=== PATIENT | male | born 1950 | race Caucasian/White ===

== ENCOUNTER 2024-03-30 01:55 | Inpatient (IN) | payer OTHER ==
[2024-03-30] VITALS (9 sets, daily range): BP systolic 130–160; BP diastolic 78–99; PULSE 61–91; RESP 17–22; TEMP 97.5–98.3; O2SAT 95–97
[~2024-03-30] VITALS: Ht 195.6 cm; Wt 118.4 kg
[2024-03-30] MEDS ORDERED: CALC0.25 PO (02:44)
[2024-03-30] MEDS ORDERED: METO-159 PO (02:44)
[2024-03-30] MEDS ORDERED: TAMS0.4C39 PO (02:44)
[2024-03-30] MEDS ORDERED: HYDR-4902 PO (02:44)
[2024-03-30] MEDS ORDERED: ALLO100T PO (02:44)
[2024-03-30] MEDS ORDERED: GABA-1250 PO (02:44)
[2024-03-30] MEDS ORDERED: ACETAMINOPHEN 325 MG TAB PO PRN (02:45)
[2024-03-30] MEDS ORDERED: ONDANSETRON HCL 4 MG/2 ML VIAL IV PRN (02:45)
[2024-03-30] MEDS ORDERED: VANCOMYCIN PER PHARMACY 0 MG IV SCH (02:45)
[2024-03-30] MEDS: VANCOMYCIN 1GM/250ML 200 ML IV ONE (04:20)
[2024-03-30] MEDS: methylPREDNISolone SOD SUCC 40 MG/ML VL IV SCH (06:05)
[2024-03-30 06:12] LABS: Basophils # (auto) 0 10 ^3/uL (0-0.2); Basophils % (auto) 0.1 % (0.0-2.0); Eosinophils # (auto) 0 10 ^3/uL (0-0.8); Eosinophils % (auto) 0.2 % (0.0-7.0); Hematocrit 40.6 % (41.0-53.0); Hemoglobin 14.4 g/dL (13.5-17.5); Lymphocytes # (auto) 0.3 10 ^3/uL (0.4-5.4); Lymphocytes % (auto) 6.2 % (10.0-50.0); Mean Corpuscular Hemoglobin 33.6 pg (28.0-32.0); Mean Corpuscular Hgb Conc. 35.4 g/dL (32.0-36.0); Monocytes # (auto) 0.1 10 ^3/uL (0-1.3); Neutrophils # (auto) 4.7 10 ^3/uL (1.6-8.6); Neutrophils % (auto) 91.5 % (37.0-80.0); Platelet Count (auto) 265 10^3/uL (140-450); Red Blood Cells 4.28 10^6/uL (4.5-5.90); Red Cell Distribution Width 14.4 % (11.8-14.3); White Blood Cell 5.2 10^3/uL (4.4-10.8)
[2024-03-30 06:19] LABS: Anion Gap 9 (5-15); Carbon Dioxide 21 mmol/L (20-31); Chloride 110 mmol/L (98-107); Potassium 3.9 mmol/L (3.5-5.1); Sodium 140 mmol/L (136-145)
[2024-03-30 06:21] LABS: Calcium 9.4 mg/dL (8.7-10.4)
[2024-03-30 06:22] LABS: INR 1.09 (0.9-1.15); Prothrombin Time 11.5 sec (9.3-11.8)
[2024-03-30 06:25] LABS: BUN/Creatinine Ratio 16.9 (10.0-20.0); Blood Urea Nitrogen 29 mg/dL (9-23); Glucose 141 mg/dL (74-106)
[2024-03-30] MEDS: TAMSULOSIN HYDROCHLORIDE 0.4 MG CAP PO SCH (09:28)
[2024-03-30] MEDS: CALCITRIOL 0.25 MCG CAP PO SCH (09:28)
[2024-03-30] MEDS: ALLOPURINOL 100 MG TAB PO SCH (09:29)
[2024-03-30] MEDS: GABAPENTIN 300 MG CAP PO SCH (09:29)
[2024-03-30] MEDS: METOPROLOL TARTRATE 50 MG TAB PO SCH (09:29)
[2024-03-30] MEDS: FAMOTIDINE (10MG/ML) 2ML VL IV SCH (09:30)
[2024-03-30] MEDS: HYDROcodone-ACET 5/325MG TAB PO PRN (11:46)
[2024-03-30] MEDS ORDERED: VANCOMYCIN 1GM/250ML 200 ML IV SCH (14:00)
[2024-03-30] MEDS: VANCOMYCIN 1GM/250ML 200 ML IV SCH (20:10)
[2024-03-31 01:00] VITALS: BP 136/81; PULSE 69; RESP 20; TEMP 97.6; O2SAT 98
[2024-03-31] MEDS: LORazepam 2MG/ML-1ML VIAL IV ONE (04:20)
[2024-03-31] MEDS: ADENOSINE 104 MG in GIVE UN-DILUTED 0 ML IV ONE (11:48)
[2024-03-31 13:00] VITALS: BP 158/103; PULSE 72; RESP 20; TEMP 98.1; O2SAT 97
[2024-03-31 17:00] VITALS: BP 151/93; PULSE 79; RESP 20; TEMP 97; O2SAT 96
[2024-03-31 19:58] LABS: Basophils # (auto) 0 10 ^3/uL (0-0.2); Basophils % (auto) 0.1 % (0.0-2.0); Eosinophils # (auto) 0 10 ^3/uL (0-0.8); Hematocrit 40.4 % (41.0-53.0); Hemoglobin 13.7 g/dL (13.5-17.5); Lymphocytes # (auto) 0.5 10 ^3/uL (0.4-5.4); Lymphocytes % (auto) 5.6 % (10.0-50.0); Mean Corpuscular Hemoglobin 32.6 pg (28.0-32.0); Mean Corpuscular Hgb Conc. 33.9 g/dL (32.0-36.0); Mean Corpuscular Volume 96.2 fL (80.0-100.0); Monocytes # (auto) 0.1 10 ^3/uL (0-1.3); Monocytes % (auto) 1.8 % (0.0-12.0); Neutrophils # (auto) 7.8 10 ^3/uL (1.6-8.6); Neutrophils % (auto) 92.5 % (37.0-80.0); Nucleated Red Blood Cells % 0.1 %; Platelet Count (auto) 290 10^3/uL (140-450); Red Cell Distribution Width 14.2 % (11.8-14.3); White Blood Cell 8.4 10^3/uL (4.4-10.8)
[2024-03-31 20:00] VITALS: RESP 18
[2024-03-31 20:02] LABS: Chloride 109 mmol/L (98-107); Potassium 4.8 mmol/L (3.5-5.1); Sodium 141 mmol/L (136-145)
[2024-03-31 20:03] LABS: Anion Gap 11 (5-15); Calcium 9.3 mg/dL (8.7-10.4); Carbon Dioxide 21 mmol/L (20-31)
[2024-03-31 20:08] LABS: BUN/Creatinine Ratio 22.3 (10.0-20.0); Blood Urea Nitrogen 37 mg/dL (9-23); Glucose 186 mg/dL (74-106)
[2024-03-31] MEDS: TEMAZEPAM 15 MG CAP PO PRN (20:57)
[2024-03-31 21:00] VITALS: BP 161/100; PULSE 87; RESP 19; TEMP 98.3; O2SAT 96
[2024-03-31] MEDS ORDERED: MELATONIN 5 MG TAB PO PRN (22:00)
[2024-04-01 01:00] VITALS: BP 151/98; PULSE 89; RESP 17; TEMP 98.6; O2SAT 95
[2024-04-01 05:00] VITALS: BP 147/88; PULSE 88; RESP 18; TEMP 98.3; O2SAT 100
[2024-04-01 06:32] LABS: Chloride 112 mmol/L (98-107); Potassium 4.8 mmol/L (3.5-5.1); Sodium 142 mmol/L (136-145)
[2024-04-01 06:33] LABS: Anion Gap 10 (5-15); Carbon Dioxide 20 mmol/L (20-31)
[2024-04-01 06:34] LABS: Basophils # (auto) 0 10 ^3/uL (0-0.2); Basophils % (auto) 0.1 % (0.0-2.0); Calcium 9.4 mg/dL (8.7-10.4); Eosinophils # (auto) 0 10 ^3/uL (0-0.8); Hematocrit 39.1 % (41.0-53.0); Hemoglobin 13.6 g/dL (13.5-17.5); Lymphocytes # (auto) 0.6 10 ^3/uL (0.4-5.4); Lymphocytes % (auto) 5.9 % (10.0-50.0); Mean Corpuscular Hemoglobin 32.6 pg (28.0-32.0); Mean Corpuscular Hgb Conc. 34.7 g/dL (32.0-36.0); Mean Corpuscular Volume 93.9 fL (80.0-100.0); Monocytes # (auto) 0.3 10 ^3/uL (0-1.3); Monocytes % (auto) 3.5 % (0.0-12.0); Neutrophils # (auto) 8.4 10 ^3/uL (1.6-8.6); Neutrophils % (auto) 90.5 % (37.0-80.0); Nucleated Red Blood Cells % 0.1 %; Platelet Count (auto) 300 10^3/uL (140-450); Red Blood Cells 4.17 10^6/uL (4.5-5.90); Red Cell Distribution Width 14.2 % (11.8-14.3); White Blood Cell 9.3 10^3/uL (4.4-10.8)
[2024-04-01 06:38] LABS: Glucose 129 mg/dL (74-106)
[2024-04-01 06:39] LABS: BUN/Creatinine Ratio 21.7 (10.0-20.0); Blood Urea Nitrogen 34 mg/dL (9-23); Magnesium 2.2 mg/dL (1.6-2.6)
[2024-04-01 08:40] VITALS: BP 165/101; PULSE 91; RESP 19; TEMP 97.8; O2SAT 97
[2024-04-01] MEDS ORDERED: fentaNYL CITRATE 100 MCG/2 ML VL ONE (09:36)
[2024-04-01] MEDS ORDERED: MIDAZOLAM HCL 2MG/2ML 2ml VIAL (1mg/ml) ONE (09:36)
[2024-04-01] MEDS ORDERED: ONDANSETRON HCL 4 MG/2 ML VIAL ONE (09:37)
[2024-04-01] MEDS ORDERED: GLYCOPYRROLATE 0.2 MG/ML 1ML VIAL ONE (09:37)
[2024-04-01] MEDS ORDERED: KETAMINE 50mg/ML 1ml syringe ONE (09:37)
[2024-04-01] MEDS ORDERED: HYDROCORTISONE SOD SUCC 100 MG/2ML INJ VIAL ONE (09:37)
[2024-04-01] MEDS ORDERED: ePHEDrine SULFATE 50 MG/ML AMP ONE (09:37)
[2024-04-01] MEDS ORDERED: PHENYLEPHRINE HCL 10 MG/ML VL ONE (09:37)
[2024-04-01] MEDS ORDERED: KETOROLAC TROMETH 30 MG/ML 1ML VIAL ONE (09:37)
[2024-04-01] MEDS ORDERED: fentaNYL CITRATE 5 ML ONE (09:43)
[2024-04-01] MEDS: VANCOMYCIN 1GM/250ML 200 ML IV SCH (12:00)
[2024-04-01] MEDS ORDERED: MEPERIDINE HCL (50 MG/ML) 1 ML VIAL ONE (12:18)
[2024-04-01] MEDS: LIDOCAINE W/ EPINEPHRINE 1% 20ML VIAL ONE (12:42)
[2024-04-01] MEDS ORDERED: MORPHINE SULF PF 5 MG/10 ML VIAL ONE (13:10)
[2024-04-01] MEDS ORDERED: PROPOFOL 10 MG/ML 20 ML IV ONE (13:25)
[2024-04-01] MEDS ORDERED: SUGAMMADEX 200mg/2ml Vial (100MG/ML) IV ONE (14:22)
[2024-04-01] MEDS ORDERED: ACETAMINOPHEN 325 MG TAB PO PRN (15:15)
[2024-04-01] MEDS ORDERED: MORPHINE SULFATE INJ 2 MG/ml SYRG IV PRN ×2 (15:15→15:45)
[2024-04-01] MEDS ORDERED: ONDANSETRON HCL 4 MG/2 ML VIAL IV PRN (15:15)
[2024-04-01 16:34] VITALS: O2SAT 100
[2024-04-01] MEDS ORDERED: HYDROmorphone HCL 2 MG/ML VL/or syr IV PRN (16:45)
[2024-04-01 20:00] VITALS: PULSE 84; RESP 18
[2024-04-01 21:00] VITALS: BP 148/90; PULSE 103; RESP 18; TEMP 97.7; O2SAT 97
[2024-04-01] MEDS: ceFAZolin 1GM/50ML 50 ML IV SCH (22:29)
[2024-04-01] MEDS: DOCUSATE SOD 100 MG CAP PO SCH (22:29)
[2024-04-02] VITALS (9 sets, daily range): BP systolic 121–167; BP diastolic 79–101; PULSE 72–113; RESP 14–20; TEMP 97.9–98.2; O2SAT 94–99
[2024-04-02] MEDS: OXYCODONE W/ ACETAMINOPHEN 5/325MG TABLET PO PRN (06:36)
[2024-04-02] MEDS: TRANEXAMIC ACID 20 ML ONE (08:02)
[2024-04-02] MEDS: BUPIVACAINE 0.25% INJ 50ML VIAL ONE (08:02)
[2024-04-02] MEDS: ceFAZolin 2 GM/D5W100ml 100 ML IV ONE (08:04)
[2024-04-02] MEDS: levoFLOXacin 750MG 150 ML IV ONE (08:04)
[2024-04-02] MEDS: ONDANSETRON HCL 4 MG/2 ML VIAL IV ONE (08:04)
[2024-04-02 11:22] LABS: Basophils # (auto) 0 10 ^3/uL (0-0.2); Eosinophils # (auto) 0 10 ^3/uL (0-0.8); Lymphocytes # (auto) 0.3 10 ^3/uL (0.4-5.4); Lymphocytes % (auto) 3.6 % (10.0-50.0); Mean Corpuscular Hemoglobin 32.6 pg (28.0-32.0); Mean Corpuscular Hgb Conc. 34.3 g/dL (32.0-36.0); Mean Corpuscular Volume 95.2 fL (80.0-100.0); Monocytes # (auto) 0.4 10 ^3/uL (0-1.3); Monocytes % (auto) 4.7 % (0.0-12.0); Neutrophils # (auto) 8.3 10 ^3/uL (1.6-8.6); Neutrophils % (auto) 91.7 % (37.0-80.0); Platelet Count (auto) 244 10^3/uL (140-450); Red Blood Cells 3.99 10^6/uL (4.5-5.90); Red Cell Distribution Width 15.1 % (11.8-14.3); White Blood Cell 9.1 10^3/uL (4.4-10.8)
[2024-04-02] MEDS: CYCLOBENZAPRINE HCL 10 MG TAB PO SCH (20:55)
[2024-04-03] VITALS (10 sets, daily range): BP systolic 152–170; BP diastolic 91–102; PULSE 67–97; RESP 17–20; TEMP 97.7–98.2; O2SAT 95–98
[2024-04-03] MEDS: hydrALAZINE HCL 20 MG/ML VL IV PRN (23:27)
[2024-04-04] VITALS (10 sets, daily range): BP systolic 132–161; BP diastolic 84–96; PULSE 75–109; RESP 18–21; TEMP 97.5–98.9; O2SAT 95–98
[2024-04-04 05:41] LABS: Basophils # (auto) 0 10 ^3/uL (0-0.2); Eosinophils # (auto) 0 10 ^3/uL (0-0.8); Hematocrit 38.9 % (41.0-53.0); Hemoglobin 13.5 g/dL (13.5-17.5); Lymphocytes # (auto) 0.5 10 ^3/uL (0.4-5.4); Lymphocytes % (auto) 4.7 % (10.0-50.0); Mean Corpuscular Hemoglobin 32.8 pg (28.0-32.0); Mean Corpuscular Hgb Conc. 34.8 g/dL (32.0-36.0); Mean Corpuscular Volume 94.5 fL (80.0-100.0); Monocytes # (auto) 0.5 10 ^3/uL (0-1.3); Monocytes % (auto) 4.3 % (0.0-12.0); Neutrophils # (auto) 9.7 10 ^3/uL (1.6-8.6); Platelet Count (auto) 232 10^3/uL (140-450); Red Blood Cells 4.12 10^6/uL (4.5-5.90); Red Cell Distribution Width 15.1 % (11.8-14.3); White Blood Cell 10.7 10^3/uL (4.4-10.8)
[2024-04-04 05:50] LABS: Anion Gap 9 (5-15); Carbon Dioxide 18 mmol/L (20-31); Chloride 113 mmol/L (98-107); Potassium 4.5 mmol/L (3.5-5.1); Sodium 140 mmol/L (136-145)
[2024-04-04 05:51] LABS: Calcium 8.9 mg/dL (8.7-10.4)
[2024-04-04 05:56] LABS: BUN/Creatinine Ratio 24.6 (10.0-20.0); Blood Urea Nitrogen 42 mg/dL (9-23); Glucose 144 mg/dL (74-106)
[2024-04-04] MEDS: methylPREDNISolone SOD SUCC 40 MG/ML VL IV SCH (17:59)
[2024-04-05] VITALS (9 sets, daily range): BP systolic 142–170; BP diastolic 82–121; PULSE 76–96; RESP 18–21; TEMP 97.5–98.6; O2SAT 96–99
[2024-04-05] MEDS: HYDROcodone-ACET 10/325MG TAB PO PRN (18:18)
[2024-04-06] VITALS (9 sets, daily range): BP systolic 122–143; BP diastolic 68–106; PULSE 62–87; RESP 18–20; TEMP 97.8–98.2; O2SAT 95–100
[2024-04-06] MEDS: FINASTERIDE 5 MG TAB PO ONE (13:52)
[2024-04-06 17:19] LABS: Chloride 115 mmol/L (98-107); Potassium 4.3 mmol/L (3.5-5.1); Sodium 142 mmol/L (136-145)
[2024-04-06 17:20] LABS: Anion Gap 7 (5-15); Carbon Dioxide 20 mmol/L (20-31)
[2024-04-06 17:21] LABS: Calcium 8.8 mg/dL (8.7-10.4)
[2024-04-06 17:25] LABS: BUN/Creatinine Ratio 22.7 (10.0-20.0); Blood Urea Nitrogen 41 mg/dL (9-23); Glucose 149 mg/dL (74-106)
[2024-04-06] MEDS: TAMSULOSIN HYDROCHLORIDE 0.4 MG CAP PO SCH (20:29)
[2024-04-07 01:00] VITALS: BP 115/79; PULSE 65; RESP 19; TEMP 98; O2SAT 97
[2024-04-07 05:00] VITALS: BP 120/84; PULSE 68; RESP 20; TEMP 98.1; O2SAT 100
[2024-04-07 08:00] VITALS: PULSE 75; PULSE 88; RESP 17; O2SAT 98
[2024-04-07] MEDS: methylPREDNISolone SOD SUCC 40 MG/ML VL IV SCH (08:58)
[2024-04-07] MEDS: FINASTERIDE 5 MG TAB PO SCH (09:00)
[2024-04-07 09:06] VITALS: BP 122/79; PULSE 70; RESP 18; TEMP 97.8; O2SAT 96
[2024-04-07 11:03] LABS: Basophils # (auto) 0 10 ^3/uL (0-0.2); Eosinophils # (auto) 0.2 10 ^3/uL (0-0.8); Eosinophils % (auto) 1.7 % (0.0-7.0); Hematocrit 41.8 % (41.0-53.0); Hemoglobin 14.1 g/dL (13.5-17.5); Lymphocytes # (auto) 1.1 10 ^3/uL (0.4-5.4); Lymphocytes % (auto) 10.3 % (10.0-50.0); Mean Corpuscular Hemoglobin 32.5 pg (28.0-32.0); Mean Corpuscular Hgb Conc. 33.9 g/dL (32.0-36.0); Monocytes # (auto) 0.9 10 ^3/uL (0-1.3); Monocytes % (auto) 8.6 % (0.0-12.0); Neutrophils # (auto) 8.4 10 ^3/uL (1.6-8.6); Neutrophils % (auto) 79.4 % (37.0-80.0); Platelet Count (auto) 204 10^3/uL (140-450); Red Blood Cells 4.35 10^6/uL (4.5-5.90); Red Cell Distribution Width 15.2 % (11.8-14.3); White Blood Cell 10.6 10^3/uL (4.4-10.8)
[2024-04-07 11:15] LABS: Chloride 112 mmol/L (98-107); Potassium 4.1 mmol/L (3.5-5.1); Sodium 141 mmol/L (136-145)
[2024-04-07 11:16] LABS: Anion Gap 6 (5-15); Calcium 9.1 mg/dL (8.7-10.4); Carbon Dioxide 23 mmol/L (20-31)
[2024-04-07 11:21] LABS: BUN/Creatinine Ratio 23.8 (10.0-20.0); Blood Urea Nitrogen 44 mg/dL (9-23); Glucose 128 mg/dL (74-106)
[2024-04-07 11:22] LABS: Magnesium 2.1 mg/dL (1.6-2.6)
[2024-04-07 13:00] VITALS: BP 113/74; PULSE 64; RESP 18; TEMP 97.4; O2SAT 96
[2024-04-07] MEDS ORDERED: FINA5TAB4 PO (14:46)
[2024-04-07] MEDS ORDERED: HYDR-4902 PO (14:46)
[2024-04-07] MEDS ORDERED: ALLO100T PO (14:46)
[2024-04-07] MEDS ORDERED: SENN-58 PO (14:46)
[2024-04-07] MEDS ORDERED: TAMS0.4C39 PO (14:46)
[2024-04-07 15:37] VITALS: BP 126/76; PULSE 72
== END 2024-04-07 17:05 | disposition home or self-care (01) | DRG 456 ==
LOC: CENTRAL 01:55 → TELE-CENTR 06:28
PROVIDERS: ADMIT Nurse Practitioner Family; ATTEND Internal Medicine
PROC: 30233N1 Transfusion of Nonautologous Red Blood Cells into Peripheral Vein, Percutaneous Approach (ICD-10-PCS; 2024-04-01)
PROC: 0SG1071 Fusion of 2 or more Lumbar Vertebral Joints with Autologous Tissue Substitute, Posterior Approach, Posterior Column, Open Approach (ICD-10-PCS; principal; 2024-04-02)
PROC: 01NB0ZZ Release Lumbar Nerve, Open Approach (ICD-10-PCS; 2024-04-02)
PROC: 00NY0ZZ Release Lumbar Spinal Cord, Open Approach (ICD-10-PCS; 2024-04-02)
PROC: 4A11X4G Monitoring of Peripheral Nervous Electrical Activity, Intraoperative, External Approach (ICD-10-PCS; 2024-04-02)
DX: M48.062 Spinal stenosis, lumbar region with neurogenic claudication (principal); N17.0 Acute kidney failure with tubular necrosis; M41.56 Other secondary scoliosis, lumbar region; I13.0 Hypertensive heart and chronic kidney disease with heart failure and stage 1 through stage 4 chronic kidney disease, or unspecified chronic kidney disease; I48.20 Chronic atrial fibrillation, unspecified; S70.01XA Contusion of right hip, initial encounter; G62.9 Polyneuropathy, unspecified; N18.32 Chronic kidney disease, stage 3b; G89.29 Other chronic pain; L89.622 Pressure ulcer of left heel, stage 2; I50.9 Heart failure, unspecified; M62.830 Muscle spasm of back; R33.8 Other retention of urine; N40.1 Benign prostatic hyperplasia with lower urinary tract symptoms; M47.26 Other spondylosis with radiculopathy, lumbar region; Z95.0 Presence of cardiac pacemaker; Z87.891 Personal history of nicotine dependence; Z83.3 Family history of diabetes mellitus; Z80.6 Family history of leukemia; Z79.899 Other long term (current) drug therapy
CPT/HCPCS: 36415; 72100; 72131; 76000; 78452; 80048; 80202; 82565; 83605; 83735; 85025; 85610; 86850; 86900; 86901; 86920; 87081; 93017; 93306; 97110; 97116; 97163; 97530; G0378; J0153; J1885; J2250; J2405; J2704; J3490

== ENCOUNTER 2024-06-27 05:21 | Emergency (ER) | payer MEDICARE, OTHER ==
[~2024-06-27] VITALS: Ht 193 cm; Wt 117.4 kg
[~2024-06-27 05:21] MED LIST: ALLO100T PO; CALC0.25 PO; FINA5TAB4 PO; GABA-1250 PO; HYDR-4902 PO; METO-159 PO; SENN-58 PO; TAMS0.4C39 PO
[2024-06-27 05:36] VITALS: BP 128/78; RESP 18; O2SAT 98
--- NOTE | 2024-06-27 05:47 | ECG ---
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
[2024-06-27 07:28] LABS: Basophils # (auto) 0 10 ^3/uL (0-0.2); Basophils % (auto) 0.3 % (0.0-2.0); Eosinophils # (auto) 0.1 10 ^3/uL (0-0.8); Eosinophils % (auto) 0.7 % (0.0-7.0); Hematocrit 40.4 % (41.0-53.0); Hemoglobin 13.5 g/dL (13.5-17.5); Lymphocytes # (auto) 1.4 10 ^3/uL (0.4-5.4); Lymphocytes % (auto) 16.7 % (10.0-50.0); Mean Corpuscular Hemoglobin 31.5 pg (28.0-32.0); Mean Corpuscular Hgb Conc. 33.5 g/dL (32.0-36.0); Mean Corpuscular Volume 94.2 fL (80.0-100.0); Monocytes % (auto) 11.4 % (0.0-12.0); Neutrophils % (auto) 70.9 % (37.0-80.0); Nucleated Red Blood Cells % 0.1 %; Platelet Count (auto) 251 10^3/uL (140-450); Red Blood Cells 4.29 10^6/uL (4.5-5.90); Red Cell Distribution Width 14.8 % (11.8-14.3); White Blood Cell 8.5 10^3/uL (4.4-10.8)
[2024-06-27 07:41] LABS: Chloride 106 mmol/L (98-107); Sodium 140 mmol/L (136-145)
[2024-06-27 07:42] LABS: Anion Gap 9 (5-15); Calcium 10.1 mg/dL (8.7-10.4); Carbon Dioxide 25 mmol/L (20-31)
[2024-06-27 07:47] LABS: BUN/Creatinine Ratio 18.3 (10.0-20.0)
[2024-06-27 07:52] LABS: Blood Urea Nitrogen 33 mg/dL (9-23); Glucose 110 mg/dL (74-106)
[2024-06-27 09:54] VITALS: PULSE 82
--- NOTE | 2024-06-27 09:54 | ED.PDOC ---
History of Present Illness HPI Comments 73 y/o M, with a AFIB, CHUCK w/CKDIII, BPH, CHF, DJD, HTN, lumbar spin s/p L-spine surgery, neuropathy, and obesity, presents with c/o abdominal pain, nausea, and vomiting since 06/23/24, today. Patient comments on unprovoked onset of intermittent, symptoms for the past four days that worsened and became constant, this morning. Patient comments on pain being tight and cramping in quality in addition to only being able to use the bathroom a couple times since onset of symptoms. He reports no additional relevant or pertinent Hx, such as recent injuries or sick contact. He denies having any hematemesis, diarrhea, constipation, urinary symptoms, fever, chills, or other associated symptoms or modifiers at this time. Chief Complaint: Abdominal Pain Time Seen by MD: 08:55 Reviewed Notes: Nurses Notes, Medications, Allergies Allergies: Coded Allergies: NO KNOWN ALLERGIES (Unverified , 03/30/24) Home Meds Active Scripts Finasteride (Finasteride) 5 Mg Tab, 1 TAB PO DAILY, #30 TAB Prov:JELENA JONES MD 04/07/24 Senna (Senokot) 8.6 Mg Tab, 1 TAB PO DAILY, #14 TAB Prov:JELENA JONES MD 04/07/24 Hydrocodone-Acetaminophen (Hydrocodone Bitartrate/AC 5-325 mg) 1 Tab Tab, 5 TAB PO Q6HPRN PRN for PAIN SCALE 7 THRU 10, #14 TAB Prov:JELENA JONES MD 04/07/24 Allopurinol (Allopurinol) 100 Mg Tab, 1 TAB PO DAILY for 19 Days Prov:JELENA JONES MD 04/07/24 Tamsulosin Hcl (Tamsulosin Hcl) 0.4 Mg Cap, 2 CAP PO HS, #30 CAP Prov:JELENA JONES MD 04/07/24 Reported Medications Gabapentin (Gabapentin) 300 Mg Cap, 1 CAP PO BID 03/30/24 Metoprolol Tartrate (Metoprolol Tartrate) 100 Mg Tab, 1 TAB PO BID 03/30/24 Calcitriol (Calcitriol) 0.25 Mcg Cap, 1 CAP PO DAILY 03/30/24 Information Source: Patient Mode of Arrival: Wheelchair Severity: Moderate Timing: Days Duration: Since onset Prehospital treatment: None Past Medical History PAST MEDICAL HISTORY: AFIB, CHF, CKF (stage III), HTN Past Medical History (Other): CHUCK BPH, DJD lumbar spin s/p L-spine surgery, neuropathy, obesity Surgical History (Other): L-spine surgery Family History Family History: Unknown Social History Smoker: Non-Smoker Alcohol: Denies ETOH Use Drugs: Denies Drug Use Lives In: Home Gastrointestinal: reports: abdominal pain, nausea, vomiting All Other Systems: Reviewed and Negative (negative unless otherwise stated above or in HPI) Physical Exam General Appearance: Moderate Distress HEENT: Normal ENT Inspection, Pharynx Normal, TMs Normal Neck: Full Range of Motion, Non-Tender, Normal, Normal Inspection Respiratory: Chest Non-Tender, Lungs Clear, No Accessory Muscle Use, No Respiratory Distress, Normal Breath Sounds Cardiovascular: No Edema, No JVD, No Murmur, No Gallop, Normal Peripheral Pulses, Regular Rate/Rhythm Breast Exam: Deferred Gastrointestinal: No Organomegaly, Non Tender, No Pulsatile Mass, Normal Bowel Sounds, Soft Genitalia: Deferred Pelvic: Deferred Rectal: Deferred Extremities: No calf tenderness, Normal capillary refill, Normal inspection, Normal range of motion, Non-tender, Pedal edema Musculoskeletal : Apperance: Normal Neurologic: Alert, 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 Was a procedure done?: No EKG EKG : Pulse Rate (adult): 82 [place]: Normal Cardiac Rhythm: Afib Block: RBBB Hypertrophy: None ST: Normal Comments LAFB Differential Dx Considerations may include: gastritis, gastroenteritis, spoiled food, viral syndrome, acute abdomen X-Ray, Labs, Meds, VS Vital Signs Date Time Temp Pulse Resp B/P (MAP) Pulse Ox O2 Delivery O2 Flow Rate FiO2 06/27/24 09:54 82 06/27/24 05:43 82 06/27/24 05:36 97.5 75 18 128/78 (95) 98 Lab Test 06/27/24 07:11 Range/Units White Blood Count 8.5 4.4-10.8 10^3/uL Red Blood Count 4.29 L 4.5-5.90 10^6/uL Hemoglobin 13.5 13.5-17.5 g/dL Hematocrit 40.4 L 41.0-53.0 % Mean Corpuscular Volume 94.2 80.0-100.0 fL Mean Corpuscular Hemoglobin 31.5 28.0-32.0 pg Mean Corpuscular Hemoglobin Concent 33.5 32.0-36.0 g/dL Red Cell Distribution Width 14.8 H 11.8-14.3 % Platelet Count 251 140-450 10^3/uL Mean Platelet Volume 7.4 6.9-10.8 fL Neutrophils (%) (Auto) 70.9 37.0-80.0 % Lymphocytes (%) (Auto) 16.7 10.0-50.0 % Monocytes (%) (Auto) 11.4 0.0-12.0 % Eosinophils (%) (Auto) 0.7 0.0-7.0 % Basophils (%) (Auto) 0.3 0.0-2.0 % Neutrophils # (Auto) 6.0 1.6-8.6 10 ^3/uL Lymphocytes # (Auto) 1.4 0.4-5.4 10 ^3/uL Monocytes # (Auto) 1.0 0-1.3 10 ^3/uL Eosinophils # (Auto) 0.1 0-0.8 10 ^3/uL Basophils # (Auto) 0 0-0.2 10 ^3/uL Nucleated Red Blood Cells 0.1 % Sodium Level 140 136-145 mmol/L Potassium Level 4.0 3.5-5.1 mmol/L Chloride Level 106 98-107 mmol/L Carbon Dioxide Level 25 20-31 mmol/L Anion Gap 9 5-15 Blood Urea Nitrogen 33 H 9-23 mg/dL Creatinine 1.80 H 0.700-1.30 mg/dL Glomerular Filtration Rate Calc 39 >90 mL/min BUN/Creatinine Ratio 18.3 10.0-20.0 Serum Glucose 110 H 74-106 mg/dL Calcium Level 10.1 8.7-10.4 mg/dL Patient alert. Came in because of abdominal discomfort. Abdomen is soft nontender. Vitals stable. BUN creatinine elevated. WBC within normal limits. Hemoglobin within normal limits. No sign of sepsis. No sign of abdominal pathology. CT scan of the abdomen was not done because physical examination was pristine. No calf tenderness. No shortness a breath. No chest pain. Does not meet any criteria. Possible gastritis. Was given GI cocktail. Was given prescription of Protonix. Reviewed his previous visit. Explained to the patient. Was told to follow up with his primary care physician. Was told to come back if there is any problem. Time of 1ST Reevaluation: 09:25 Reevaluation 1ST: Improved Patient Education/Counseling: Diagnosis, Treatment Family Education/Counseling: Diagnosis, Treatment Additional Information I reviewed the following notes from patient's past medical encounters: discharge summary report on 04/07/24 The following tests were ordered, and results were reviewed by me: BMP, CBC, EKG Additional Information was gathered from interviewing the following independent historians: spouse I discussed treatment and results with medical personnel and: spouse Departure 1 Departure Time of Disposition: 10:23 Impression: Primary Impression: Gastritis Qualified Codes: K29.00 - Acute gastritis without bleeding Disposition: HOME / SELF CARE / HOMELESS Condition: Good e-Prescriptions Pantoprazole Sodium Sesquihydr (Protonix) 40 Mg Tab 40 MG PO DAILY for 7 Days, #7 TAB Prov: YOLY SHEEHAN MD 06/27/24 Discharged With: Self Critical Care Note Critical Care Time?: No Stability Stability form required: No Heart Score Heart Score: Heart Score Response (Comments) Value History N/A 0 EKG N/A 0 Age N/A 0 Risk Factors N/A 0 Troponin N/A 0 Total 0 I personally scribed for YOLY SHEEHAN MD ([email or web address]) on 06/27/24 at 09:54. Electronically submitted by Chay Mancini ([email or web address]). YOLY SHEEHAN MD Jun 27, 2024 09:54
[2024-06-27] MEDS ORDERED: PANT40TA2 PO (10:24)
[2024-06-27] MEDS: DONNATAL 5ml ORAL Elix (BELLADONNA ALK-PHENOBARB) PO ONE (11:33)
[2024-06-27] MEDS: MAALOX PLUS or MAALOX 30 ML PO ONE (11:33)
[2024-06-27] MEDS: LIDOCAINE VISCOUS 2% 15ML UD PO ONE (11:34)
== END 2024-06-27 11:15 | disposition home or self-care (01) ==
LOC: ER 05:21
DX: K29.70 Gastritis, unspecified, without bleeding (principal); I13.0 Hypertensive heart and chronic kidney disease with heart failure and stage 1 through stage 4 chronic kidney disease, or unspecified chronic kidney disease; N18.30 Chronic kidney disease, stage 3 unspecified; I50.9 Heart failure, unspecified; I48.91 Unspecified atrial fibrillation; M19.90 Unspecified osteoarthritis, unspecified site; E66.9 Obesity, unspecified; Z79.899 Other long term (current) drug therapy; Z68.31 Body mass index [BMI] 31.0-31.9, adult
CPT/HCPCS: 36415; 80048; 85025; 93005

== ENCOUNTER 2024-08-13 06:07 | Inpatient (IN) | payer OTHER ==
[~2024-08-13] VITALS: Ht 195.6 cm; Wt 106.8 kg
[~2024-08-13 06:07] MED LIST changes: +PANT40TA2 PO
--- NOTE | 2024-08-13 06:53 | ED.PDOC ---
Altered Mental Status HPI Comments 73-year-old male with PMHx CVA presents with a chief complaint of ALOC x 4 days. Patients is present and reports that patient has been increasingly agitated and more altered than is typical for his baseline. Patient is aphasic at this time, however, is able to speak in clear sentences; no facial drooping or slurred speech noted at this time. Patient was reluctant to come into the ER earlier in the week when symptoms began. Patients mentions that patient has had a "mild stroke" in the past. Patient blood sugar at time of triage was 93. No other symptoms or modifying factors present at this time. Chief Complaint: Confusion Time Seen by MD: 06:32 Allergies: Coded Allergies: NO KNOWN ALLERGIES (Unverified , 03/30/24) Home Meds Active Scripts Pantoprazole Sodium Sesquihydr (Protonix) 40 Mg Tab, 40 MG PO DAILY for 7 Days, #7 TAB Prov:YOLY SHEEHAN MD 06/27/24 Finasteride (Finasteride) 5 Mg Tab, 1 TAB PO DAILY, #30 TAB Prov:JELENA JONES MD 04/07/24 Senna (Senokot) 8.6 Mg Tab, 1 TAB PO DAILY, #14 TAB Prov:JELENA JONES MD 04/07/24 Hydrocodone-Acetaminophen (Hydrocodone Bitartrate/AC 5-325 mg) 1 Tab Tab, 5 TAB PO Q6HPRN PRN for PAIN SCALE 7 THRU 10, #14 TAB Prov:JELENA JONES MD 04/07/24 Allopurinol (Allopurinol) 100 Mg Tab, 1 TAB PO DAILY for 19 Days Prov:JELENA JONES MD 04/07/24 Tamsulosin Hcl (Tamsulosin Hcl) 0.4 Mg Cap, 2 CAP PO HS, #30 CAP Prov:JELENA JONES MD 04/07/24 Reported Medications Gabapentin (Gabapentin) 300 Mg Cap, 1 CAP PO BID 03/30/24 Metoprolol Tartrate (Metoprolol Tartrate) 100 Mg Tab, 1 TAB PO BID 03/30/24 Calcitriol (Calcitriol) 0.25 Mcg Cap, 1 CAP PO DAILY 03/30/24 Past Medical History PAST MEDICAL HISTORY: AFIB, CHF, CKF, HTN Family History Family History: Unknown Social History Smoker: Non-Smoker Alcohol: Denies ETOH Use Drugs: Denies Drug Use Lives In: Home Constitutional: denies: chills, diaphoresis, fatigue, fever, malaise, sweats, weakness, others EENTM: denies: blurred vision, double vision, ear bleeding, ear discharge, ear drainage, ear pain, ear ringing, eye pain, eye redness, hearing loss, mouth pain, mouth swelling, nasal discharge, nose bleeding, nose congestion, nose pain, photophobia, tearing, throat pain, throat swelling, voice changes, others Respiratory: denies: cough, hemoptysis, orthopnea, SOB at rest, shortness of breath, SOB with excertion, stridor, wheezing, others Cardiovascular: denies: chest pain, dizzy spells, diaphoresis, Dyspnea on exertion, edema, irregular heart beat, left arm pain, lightheadedness, palpitations, PND, syncope, others Gastrointestinal: denies: abdomen distended, abdominal pain, blood streaked bowels, constipated, diarrhea, dysphagia, difficulty swallowing, hematemesis, melena, nausea, poor appetite, poor fluid intake, rectal bleeding, rectal pain, vomiting, others Genitourinary: denies: burning, dysuria, flank pain, frequency, hematuria, incontinence, penile discharge, penile sore, pain, testicle pain, testicle swelling, urgency, others Neurological: denies: dizziness, fainting, headache, left sided numbness, left sided weakness, numbness, paresthesia, pre-existing deficit, right sided numbness, right sided weakness, seizure, speech problems, tingling, tremors, weakness, others Musculoskeletal: denies: back pain, gout, joint pain, joint swelling, muscle pain, muscle stiffness, neck pain, others Integumetry: denies: bruises, change in color, change in hair/nails, dryness, laceration, lesions, lumps, rash, wounds, others Allergic/Immunocompromised: denies: Difficulty Healing, Frequent Infections, Hives, Itching, others Hematologic/Lymphatic: denies: anemia, blood clots, easy bleeding, easy bruising, swollen glands, others Endocrine: denies: excessive hunger, excessive sweating, excessive thirst, excessive urination, flushing, intolerance to cold, intolerance to heat, unexplained weight gain, unexplained weight loss, others Psychiatric: denies: anxiety, bipolar disorder, depression, hopeless, panic disorder, schizophrenia, sleepless, suicidal, others Unable to Obtain due to: Altered Mental Status (WITH AGITATION) All Other Systems: Reviewed and Negative Physical Exam General Appearance: No Apparent Distress, Normal HEENT: NOT DONE Neck: NOT DONE Respiratory: Normal Breath Sounds Cardiovascular: Regular Rate/Rhythm Breast Exam: Deferred Gastrointestinal: NOT DONE Genitalia: Deferred Pelvic: Deferred Rectal: Deferred Extremities: NOT DONE Neurologic: Aphasia Cerebellar Function: NOT DONE Reflexes: NOT DONE Skin: Dry, Normal Color Lymphatic: NOT DONE EKG EKG : Pulse Rate (adult): 125 [place]: Normal Block: RBBB Hypertrophy: None ST: Ischemia Comments SIGNIFICANT ARTIFACT Was a procedure done? Was a procedure done?: No Differential Diagnosis (ALOC) Differential Diagnosis: Dehydration, Hypoglycemia, DKA, Encephalopathy, Meningitis, Sepsis, Seizure, Closed Head Injury, CVA, Mass Lesion, SAH, Drug Overdose, ETOH Intoxication X-Ray, Labs, Meds, VS Vital Signs Date Time Temp Pulse Resp B/P (MAP) Pulse Ox O2 Delivery O2 Flow Rate FiO2 08/13/24 08:00 101 08/13/24 07:29 113 Room Air* 0 21 08/13/24 07:29 98.0 113 12 155/74 (101) 100 98.0 08/13/24 07:03 08/13/24 06:59 125 08/13/24 06:10 97.7 108 16 131/71 (91) 100 Lab Test 08/13/24 06:40 08/13/24 06:21 Range/Units White Blood Count 7.3 4.4-10.8 10^3/uL Red Blood Count 4.23 L 4.5-5.90 10^6/uL Hemoglobin 12.3 L 13.5-17.5 g/dL Hematocrit 37.1 L 41.0-53.0 % Mean Corpuscular Volume 87.8 80.0-100.0 fL Mean Corpuscular Hemoglobin 29.1 28.0-32.0 pg Mean Corpuscular Hemoglobin Concent 33.1 32.0-36.0 g/dL Red Cell Distribution Width 14.6 H 11.8-14.3 % Platelet Count 262 140-450 10^3/uL Mean Platelet Volume 7.3 6.9-10.8 fL Neutrophils (%) (Auto) 77.6 37.0-80.0 % Lymphocytes (%) (Auto) 12.0 10.0-50.0 % Monocytes (%) (Auto) 9.9 0.0-12.0 % Eosinophils (%) (Auto) 0.3 0.0-7.0 % Basophils (%) (Auto) 0.2 0.0-2.0 % Neutrophils # (Auto) 5.7 1.6-8.6 10 ^3/uL Lymphocytes # (Auto) 0.9 0.4-5.4 10 ^3/uL Monocytes # (Auto) 0.7 0-1.3 10 ^3/uL Eosinophils # (Auto) 0 0-0.8 10 ^3/uL Basophils # (Auto) 0 0-0.2 10 ^3/uL Nucleated Red Blood Cells 0.0 % Prothrombin Time 14.0 H 9.3-11.8 sec Prothrombin Time INR 1.36 H 0.9-1.15 Activated Partial Thromboplast Time 42.1 H 24.5-34.5 SEC D-Dimer, Quantitative 0.85 H 0.0-0.49 mg/L FEU Sodium Level 139 136-145 mmol/L Potassium Level 3.1 L 3.5-5.1 mmol/L Chloride Level 105 98-107 mmol/L Carbon Dioxide Level 22 20-31 mmol/L Anion Gap 12 5-15 Blood Urea Nitrogen 31 H 9-23 mg/dL Creatinine 1.81 H 0.700-1.30 mg/dL Glomerular Filtration Rate Calc 39 >90 mL/min BUN/Creatinine Ratio 17.1 10.0-20.0 Serum Glucose 109 H 74-106 mg/dL Lactic Acid Level 2.1 *H 0.4-2.0 mmol/L Calcium Level 10.3 8.7-10.4 mg/dL Total Bilirubin 0.9 0.2-1.0 mg/dL Aspartate Amino Transferase (AST) 36 13-40 U/L Alanine Aminotransferase (ALT) 18 7-40 U/L Alkaline Phosphatase 101 46-116 U/L Troponin I High Sensitivity 13 </=54 ng/L Total Protein 7.8 5.7-8.2 g/dL Albumin 4.2 3.2-4.8 g/dL Plasma/Serum Blood Alcohol < 3.0 <10 mg/dL POC Glucose 93 70-106 mg/dl X-Ray, Labs, Meds, VS Comment This 73-year-old male presents to emergency room secondary to difficulty finding words last few days. He was no focal areas of weakness. His CT was negative. However, the acute onset of anomic aphasia that is worrisome for a stroke. Patient will be admitted for further workup management of a possible stroke Time of 1ST Reevaluation: 07:52 Reevaluation 1ST: Unchanged Patient Education/Counseling: Diagnosis, Treatment, Need For Follow Up Family Education/Counseling: Diagnosis, Treatment, Need For Follow Up Departure 1 Departure Time of Disposition: 09:39 Impression: Primary Impression: Anomic aphasia Disposition: ADMITTED INPATIENT Admit to: Tele Condition: Serious Critical Care Note Critical Care Time?: No Stability Stability form required: No Heart Score Heart Score: Heart Score Response (Comments) Value History N/A 0 EKG N/A 0 Age N/A 0 Risk Factors N/A 0 Troponin N/A 0 Total 0 I personally scribed for AUDREY SALAZAR MD ([email or web address]) on 08/13/24 at 06:53. Electronically submitted by Martinez Pearson ([email or web address]). I personally scribed for AUDREY SALAZAR MD ([email or web address]) on 08/13/24 at 07:03. El ectronically submitted by Martinez Pearson ([email or web address]). AUDREY SALAZAR MD Aug 13, 2024 06:53
[2024-08-13 07:29] VITALS: PULSE 113; PULSE 98
[2024-08-13 07:32] LABS: Alanine Aminotransferase 18 U/L (7-40); Albumin 4.2 g/dL (3.2-4.8); Alkaline Phosphatase 101 U/L (46-116); Anion Gap 12 (5-15); Aspartate Aminotransferase 36 U/L (13-40); BUN/Creatinine Ratio 17.1 (10.0-20.0); Bilirubin, Total 0.9 mg/dL (0.2-1.0); Blood Alcohol < 3.0 mg/dL (<10); Blood Urea Nitrogen 31 mg/dL (9-23); Calcium 10.3 mg/dL (8.7-10.4); Carbon Dioxide 22 mmol/L (20-31); Chloride 105 mmol/L (98-107); Glucose 109 mg/dL (74-106); Potassium 3.1 mmol/L (3.5-5.1); Sodium 139 mmol/L (136-145); Total Protein 7.8 g/dL (5.7-8.2)
[2024-08-13 07:34] LABS: Lactic Acid w/Reflex 2.1 mmol/L (0.4-2.0)
--- NOTE | 2024-08-13 07:39 | DVH ---
EXAM: XR Chest, 1 View CLINICAL INDICATION: chest pain TECHNIQUE: Frontal view of the chest. COMPARISON: None FINDINGS: LUNGS AND PLEURAL SPACES: Congestion. No consolidation. No pneumothorax. HEART: Unremarkable. No cardiomegaly. MEDIASTINUM: Unremarkable. Normal mediastinal contour. BONES/JOINTS: Unremarkable. No acute fracture. TUBES, LINES AND DEVICES: Left-sided cardiac pacemaker. OTHER FINDINGS: . . . .. IMPRESSION: Mild pulmonary congestion.
[2024-08-13 07:47] LABS: INR 1.36 (0.9-1.15); Partial Thromboplastin Time 42.1 SEC (24.5-34.5)
--- NOTE | 2024-08-13 07:47 | DVH ---
EXAM: CT HEAD WITHOUT CONTRAST INDICATION: Aphasia TECHNIQUE: CT of the head without intravenous contrast. Coronal and sagittal reformatted images are submitted. Radiation Dose : 1. Head: CT Dose: CTDI volume is 48.33 mGy. Dose-length product is 934.88 mGy*cm The dose indicators for CT are the volume Computed Tomography (CT) Dose Index (CTDIvol) and the Dose Length Product (DLP), and are measured in units of mGy and mGy-cm, respectively. These indicators are not patient dose, but values generated from the CT scanner acquisition factors. The report includes radiation exposure data for exposures received during this examination. All CT scans at this medical facility are performed using dose modulation techniques as appropriate to a performed exam including the following: Automated exposure control was utilized; adjustment of the MA and/or KV according to patient size; and use of iterative reconstruction technique. COMPARISON: None FINDINGS: There is no evidence of acute intracranial hemorrhage, extra-axial collection, mass effect, midline s hift, herniation or hydrocephalus. The ventricles, sulci and cisterns are age appropriate. The benjamin-white differentiation is intact. The visualized paranasal sinuses and mastoid air cells are clear. No depressed calvarial fracture. The surrounding soft tissues are unremarkable. IMPRESSION: 1. No evidence of acute intracranial abnormality.
[2024-08-13 07:48] LABS: Basophils # (auto) 0 10 ^3/uL (0-0.2); Basophils % (auto) 0.2 % (0.0-2.0); Eosinophils # (auto) 0 10 ^3/uL (0-0.8); Eosinophils % (auto) 0.3 % (0.0-7.0); Hematocrit 37.1 % (41.0-53.0); Hemoglobin 12.3 g/dL (13.5-17.5); Lymphocytes # (auto) 0.9 10 ^3/uL (0.4-5.4); Mean Corpuscular Hemoglobin 29.1 pg (28.0-32.0); Mean Corpuscular Hgb Conc. 33.1 g/dL (32.0-36.0); Mean Corpuscular Volume 87.8 fL (80.0-100.0); Monocytes # (auto) 0.7 10 ^3/uL (0-1.3); Monocytes % (auto) 9.9 % (0.0-12.0); Neutrophils # (auto) 5.7 10 ^3/uL (1.6-8.6); Neutrophils % (auto) 77.6 % (37.0-80.0); Platelet Count (auto) 262 10^3/uL (140-450); Red Blood Cells 4.23 10^6/uL (4.5-5.90); Red Cell Distribution Width 14.6 % (11.8-14.3); White Blood Cell 7.3 10^3/uL (4.4-10.8)
[2024-08-13 10:09] LABS: Urine Bacteria None Seen /hpf (None Seen)
[2024-08-13 10:32] LABS: Cannabinoid Screen, Urine Pos (NEGATIVE)
[2024-08-13 10:33] LABS: Amphetamine Screen, Urine Neg (NEGATIVE); Barbiturate Scree,Urine Neg (NEGATIVE); Benzodiazephine Screen, Urine Neg (NEGATIVE); Cocaine Screen, Urine Neg (NEGATIVE); Opiate Scree,Urine Pos (NEGATIVE); Phencyclidine Screen, Urine Neg (NEGATIVE)
[2024-08-13 11:11] LABS: Urine Blood Negative /uL (Negative); Urine Clarity Clear (Clear); Urine Color Yellow (Yellow); Urine Hyaline Cast FEW /lpf (0 - 2); Urine Protein, UAD Negative (Negative); Urine Specific Gravity 1.016 (1.001-1.035); Urine Squamous Epithelial Cell FEW /hpf (<5); Urine Urobilinogen Normal (Negative); Urine WBC 1 /HPF (0-3); Urine pH 5.5 (5.0-9.0)
[2024-08-13] MEDS ORDERED: DIGO0.12 PO (13:11)
[2024-08-13] MEDS: SODIUM CHLORIDE 0.9% 1,000 ML IV ONE (13:27)
[2024-08-13] MEDS ORDERED: HYDROcodone-ACET 5/325MG TAB PO PRN (13:30)
[2024-08-13] MEDS ORDERED: ACETAMINOPHEN 325 MG TAB PO PRN (13:45)
[2024-08-13] MEDS ORDERED: NITROGLYCERIN 0.4 MG SL TAB SL PRN (13:45)
[2024-08-13] MEDS ORDERED: MORPHINE SULFATE INJ 2 MG/ml SYRG IV PRN (13:45)
--- NOTE | 2024-08-13 14:09 | DVHHP2 ---
History of Present Illness Reason for Visit: Altered level of sensorium History of Present Illness 73-year-old male with PMHx CVA presents with a chief complaint of ALOC x 4 days. Patients is present and reports that patient has been increasingly agitated and more altered than is typical for his baseline. Patient is elderly aphasic at this time, is able to speak in clear sentences; no facial drooping or slurred speech noted at this time. Patient was reluctant to come into the ER earlier in the week when symptoms began. Patients mentions that patient has had a "mild stroke" in the past. Patient blood sugar at time of triage was 93. No other symptoms or modifying factors present at this time. Patient otherwise complains of generalized body aches and hip discomfort and appears restless. Patient denies any chest pain or shortness for breath. Says he does not feel well and weak. Denies any fevers chills or sweats. Other review of systems reviewed. Given his confusion with restlessness with prior history of stroke is felt patient need to have further evaluation including stroke workup. Meantime in the ER patient also noted to have mildly elevated lactic acid suggestive of possible underlying infection could be contributing to his confusion. Therefore he is being admitted for further workup and management. Past Medical History AFIB, CHF, CKF, HTN DJD of lumbar, BPH Past Surgical History Lumbar spine surgery Smoke: No ALCOHOL: rare Review of Systems Review of Systems Denies having any fevers chills or sweats. No headache dizziness. No chest pain. Other review of systems reviewed normal. Allergies: Coded Allergies: NO KNOWN ALLERGIES (Unverified , 03/30/24) Medications Current Medications Medications Dose Ordered Sig/Iron Route Start Time Stop Time Status Last Admin Dose Admin Allopurinol 100 mg DAILY PO 08/14/24 10:00 Calcitriol 0.25 mcg DAILY PO 08/14/24 10:00 Digoxin 0.125 mg DAILY PO 08/14/24 10:00 Finasteride 5 mg DAILY PO 08/14/24 10:00 Gabapentin 300 mg BID PO 08/13/24 22:00 Acetaminophen/ Hydrocodone Bitart 5 tab Q6HPRN PRN PO 08/13/24 13:30 Pantoprazole Sodium 40 mg DAILY PO 08/14/24 10:00 Sennosides 8.6 mg DAILY PO 08/14/24 10:00 Tamsulosin HCl 0.4 mg HS PO 08/13/24 22:00 Metoprolol Tartrate 100 mg BID PO 08/13/24 22:00 Nitroglycerin 0.4 mg Q5MINP PRN SL 08/13/24 13:45 Morphine Sulfate 2 mg Q30M PRN IV 08/13/24 13:45 Piperacillin Sod/ Tazobactam Sod 100 ml @ 25 mls/hr Q8HR IV 08/13/24 14:00 UNV Ondansetron HCl 4 mg Q4HPRN PRN IV 08/13/24 13:45 Acetaminophen 650 mg Q6HP PRN PO 08/13/24 13:45 Famotidine 20 mg DAILY IV 08/14/24 10:00 Sodium Chloride 1,000 ml @ 125 mls/hr Q8H IV 08/13/24 13:45 Exam Vital Signs Vital Signs Date Time Temp Pulse Resp B/P (MAP) Pulse Ox O2 Delivery O2 Flow Rate FiO2 08/13/24 12:00 98.1 118 18 111/58 (75) 90 98.1 08/13/24 07:29 Room Air* 0 21 Exam Alert awake oriented to place and person. Able to speak but slow speech but able to understand his words. Appears restless. HEENT pupils equal round react to light. Neck supple no JVD. Oropharynx poor dentition. Heart regular rate and rhythm S1-S2. Lungs fair air movement poor inspiratory effort. No rales or wheezes heard. Chest tube will expansion. Abdomen is soft nontender nondistended positive bowel sounds. Extremities no edema positive pulses. Neurologically able to move all four extremities. No gross focal deficits noted. Labs/Xrays Labs Test 08/13/24 10:13 08/13/24 06:40 08/13/24 06:39 08/13/24 06:21 Range/Units Lactic Acid Level 2.7 *H 0.4-2.0 mmol/L White Blood Count 7.3 4.4-10.8 10^3/uL Red Blood Count 4.23 L 4.5-5.90 10^6/uL Hemoglobin 12.3 L 13.5-17.5 g/dL Hematocrit 37.1 L 41.0-53.0 % Mean Corpuscular Volume 87.8 80.0-100.0 fL Mean Corpuscular Hemoglobin 29.1 28.0-32.0 pg Mean Corpuscular Hemoglobin Concent 33.1 32.0-36.0 g/dL Red Cell Distribution Width 14.6 H 11.8-14.3 % Platelet Count 262 140-450 10^3/uL Mean Platelet Volume 7.3 6.9-10.8 fL Neutrophils (%) (Auto) 77.6 37.0-80.0 % Lymphocytes (%) (Auto) 12.0 10.0-50.0 % Monocytes (%) (Auto) 9.9 0.0-12.0 % Eosinophils (%) (Auto) 0.3 0.0-7.0 % Basophils (%) (Auto) 0.2 0.0-2.0 % Neutrophils # (Auto) 5.7 1.6-8.6 10 ^3/uL Lymphocytes # (Auto) 0.9 0.4-5.4 10 ^3/uL Monocytes # (Auto) 0.7 0-1.3 10 ^3/uL Eosinophils # (Auto) 0 0-0.8 10 ^3/uL Basophils # (Auto) 0 0-0.2 10 ^3/uL Nucleated Red Blood Cells 0.0 % Prothrombin Time 14.0 H 9.3-11.8 sec Prothrombin Time INR 1.36 H 0.9-1.15 Activated Partial Thromboplast Time 42.1 H 24.5-34.5 SEC D-Dimer, Quantitative 0.85 H 0.0-0.49 mg/L FEU Sodium Level 139 136-145 mmol/L Potassium Level 3.1 L 3.5-5.1 mmol/L Chloride Level 105 98-107 mmol/L Carbon Dioxide Level 22 20-31 mmol/L Anion Gap 12 5-15 Blood Urea Nitrogen 31 H 9-23 mg/dL Creatinine 1.81 H 0.700-1.30 mg/dL Glomerular Filtration Rate Calc 39 >90 mL/min BUN/Creatinine Ratio 17.1 10.0-20.0 Serum Glucose 109 H 74-106 mg/dL Calcium Level 10.3 8.7-10.4 mg/dL Total Bilirubin 0.9 0.2-1.0 mg/dL Aspartate Amino Transferase (AST) 36 13-40 U/L Alanine Aminotransferase (ALT) 18 7-40 U/L Alkaline Phosphatase 101 46-116 U/L Troponin I High Sensitivity 13 </=54 ng/L Total Protein 7.8 5.7-8.2 g/dL Albumin 4.2 3.2-4.8 g/dL Plasma/Serum Blood Alcohol < 3.0 <10 mg/dL Urine Color Yellow Yellow Urine Clarity Clear Clear Urine pH 5.5 5.0-9.0 Urine Specific [place] 1.016 1.001-1.035 Urine Protein Negative Negative Urine Ketones Negative Negative Urine Blood Negative Negative /uL Urine Nitrite Negative Negative Urine Bilirubin Negative Negative Urine Urobilinogen Normal Negative mg/dL Urine Leukocyte Esterase Negative Negative /uL Urine RBC <1 0 - 3 /hpf Urine Microscopic WBC 1 0-3 /HPF Urine Squamous Epithelial Cells Few <5 /hpf Urine Bacteria None seen None Seen /hpf Urine Hyaline Casts Few 0 - 2 /lpf Urine Glucose Normal Normal mg/dL Urine Opiates Screen Pos NEGATIVE Urine Fentanyl Screen Neg NEGATIVE Urine Barbiturates Screen Neg NEGATIVE Urine Phencyclidine Screen Neg NEGATIVE Urine Amphetamines Screen Neg NEGATIVE Urine Benzodiazepines Screen Neg NEGATIVE Urine Cocaine Screen Neg NEGATIVE Urine Cannabinoids Screen Pos NEGATIVE POC Glucose 93 70-106 mg/dl Assessment/Plan Assessment/Plan Given he is speech issues with a history of strokes and AFib I will rule out stroke in this patient. Patient has a pacemaker. We will have pacemaker interrogated and send him to MRI of the brain as well as MRA of the head and neck. Patient does have mild renal insufficiency therefore we will put him on IV fluids. Repeat kidney function. I will have pulmonary/neuro evaluations. We will do blood cultures and urine cultures. Empiric antibiotics. Repeat lactic acid levels. IV fluids. Otherwise continue home medications. Supportive care and treatment. Further clinical management per clinical course and recommendations from the consultants. Meantime we will also start him on aspirin and statin as well as Lovenox for DVT prophylaxis. Discussed with the patient and nurse regarding care plan. Plan discussed with: Patient My Orders Orders - JELENA JONES MD Procedure Category Date Status Time Allopurinol Tablet PHA 08/14/24 In Process (Zyloprim Tablet) 10:00 Calcitriol Capsule PHA 08/14/24 In Process (Rocaltrol Capsule) 10:00 Digoxin Tablet PHA 08/14/24 In Process (Lanoxin Tablet) 10:00 Hydrocodone-Acet PHA 08/13/24 In Process 5/325mg Tab (Romeo 13:30 Pantoprazole Tablet PHA 08/14/24 In Process (Protonix Tablet) 10:00 Senna Pod Tablet PHA 08/14/24 In Process (Senokot Tablet) 10:00 Tamsulosin PHA 08/13/24 In Process Hydrochloride (Flomax) 22:00 Metoprolol Tartrate PHA 08/13/24 In Process Tablet (Lopressor Ta 22:00 Finasteride Tablet PHA 08/14/24 In Process (Proscar Tablet) 10:00 Gabapentin Capsule PHA 08/13/24 In Process (Neurontin Capsule) 22:00 Admit ADMIT 08/13/24 Transmitted 13:31 Clear Liq Diet DIET 08/13/24 Transmitted Dinner Speech Pathologist EDWINA 08/13/24 In Process Mica: Surinder 13:[address] 08/13/24 Transmitted 13:31 Angio Head/Neck CT 08/13/24 Logged 13:31 Nitroglycerin PHA 08/13/24 In Process Sublingual (Ntrostat 13:45 Morphine Sulfate PHA 08/13/24 In Process Injection 13:45 Stat Ekg For Chest EDWINA 08/13/24 In Process Pain 13:31 Notify Md Of Changes EDWINA 08/13/24 In Process From Base 13:31 Engineering And Development Director For EDWINA 08/13/24 In Process 24 Hours 13:31 Emergency Dysrhythmia EDWINA 08/13/24 In Process Protocol 13:31 Rhythm Strips Once EDWINA 08/13/24 In Process Every Shift 13:31 Oxygen By Nasal RT 08/13/24 Transmitted Cannula 13:31 Piperacillin-Tazob PHA 08/13/24 Logged 3.375gm (Zosyn 3.375g 14:00 Ondansetron Hcl PHA 08/13/24 In Process (Zofran) 13:45 Acetaminophen Tablet PHA 08/13/24 In Process (Tylenol Tablet) 13:45 Famotidine Injection PHA 08/14/24 In Process (Pepcid Injection) 10:00 Lactic Acid W/ Reflex LAB 08/13/24 Logged Order 16:00 Lactic Acid W/ Reflex LAB 08/13/24 Logged Order 22:00 Sodium Chloride 0.9% PHA 08/13/24 In Process 13:45 Sodium Chloride 0.9% PHA 08/13/24 Logged 13:45 Mra Angio Of Neck MRI 08/13/24 Logged 13:48 Mra Angio Head Brain MRI 08/13/24 Logged 13:48 Brain Head Wo Contrast MRI 08/13/24 Logged 13:48 * Cardiology Consult CONS 08/13/24 Transmitted 13:48 Problem List: (1) Anomic aphasia (2) Back pain (3) Encephalopathy, metabolic JELENA JONES MD Aug 13, 2024 14:09
[2024-08-13] MEDS: PIPERACILLIN-TAZOB 3.375GM 100 ML IV ONE (14:47)
[2024-08-13] MEDS: SODIUM CHLORIDE 0.9% 500 ML IV ONE (14:56)
[2024-08-13] MEDS: LORazepam 2MG/ML-1ML VIAL IV ONE (16:14)
[2024-08-13] MEDS: HYDROcodone-ACET 5/325MG TAB PO PRN (16:14)
[2024-08-13] MEDS: SODIUM CHLORIDE 0.9% 1,000 ML IV SCH (16:17)
[2024-08-13 16:34] LABS: Lactic Acid w/Reflex 2.5 mmol/L (0.4-2.0)
[2024-08-13 16:42] VITALS: PULSE 114; RESP 20; O2SAT 94
[2024-08-13 17:00] VITALS: BP 133/73; PULSE 114; RESP 20; TEMP 97.9; O2SAT 94
[2024-08-13] MEDS ORDERED: LORazepam 2MG/ML-1ML VIAL IV PRN (17:00)
[2024-08-13] MEDS ORDERED: ATOR10TA PO (17:41)
[2024-08-13] MEDS ORDERED: FURO40TA4 PO (17:41)
[2024-08-13] MEDS ORDERED: RIV15T PO (17:41)
[2024-08-13 20:00] VITALS: PULSE 80; RESP 18
[2024-08-13 21:00] VITALS: BP 152/62; PULSE 121; RESP 20; TEMP 98.3; O2SAT 97
[2024-08-13] MEDS: METOPROLOL TARTRATE 50 MG TAB PO SCH (21:52)
[2024-08-13] MEDS: GABAPENTIN 300 MG CAP PO SCH (21:52)
[2024-08-13] MEDS: TAMSULOSIN HYDROCHLORIDE 0.4 MG CAP PO SCH (21:52)
[2024-08-13] MEDS ORDERED: PIPERACILLIN-TAZOB 3.375GM 100 ML IV SCH (22:00)
[2024-08-13 23:10] LABS: Lactic Acid w/Reflex 2.2 mmol/L (0.4-2.0)
[2024-08-14] VITALS (8 sets, daily range): BP systolic 110–143; BP diastolic 54–78; PULSE 90–114; RESP 16–20; TEMP 97.6–101.1; O2SAT 96–99
[2024-08-14] MEDS: LORazepam 2MG/ML-1ML VIAL IV ONE (02:23)
[2024-08-14] MEDS: PIPERACILLIN-TAZOB 3.375GM 100 ML IV SCH (02:23)
[2024-08-14 07:38] LABS: Sodium 143 mmol/L (136-145)
[2024-08-14 07:39] LABS: Anion Gap 14 (5-15); Calcium 9.8 mg/dL (8.7-10.4)
[2024-08-14 07:44] LABS: BUN/Creatinine Ratio 15.1 (10.0-20.0); Glucose 94 mg/dL (74-106)
[2024-08-14 07:45] LABS: Blood Urea Nitrogen 23 mg/dL (9-23); Carbon Dioxide 19 mmol/L (20-31); Chloride 110 mmol/L (98-107); Potassium 3.4 mmol/L (3.5-5.1)
[2024-08-14 07:46] LABS: Basophils # (auto) 0 10 ^3/uL (0-0.2); Basophils % (auto) 0.2 % (0.0-2.0); Eosinophils # (auto) 0 10 ^3/uL (0-0.8); Eosinophils % (auto) 0.1 % (0.0-7.0); Hematocrit 34.8 % (41.0-53.0); Hemoglobin 11.4 g/dL (13.5-17.5); Lymphocytes # (auto) 0.4 10 ^3/uL (0.4-5.4); Lymphocytes % (auto) 5.3 % (10.0-50.0); Mean Corpuscular Hemoglobin 29.1 pg (28.0-32.0); Mean Corpuscular Hgb Conc. 32.9 g/dL (32.0-36.0); Mean Corpuscular Volume 88.3 fL (80.0-100.0); Monocytes # (auto) 0.9 10 ^3/uL (0-1.3); Monocytes % (auto) 10.3 % (0.0-12.0); Neutrophils # (auto) 7.1 10 ^3/uL (1.6-8.6); Neutrophils % (auto) 84.1 % (37.0-80.0); Platelet Count (auto) 250 10^3/uL (140-450); Red Blood Cells 3.94 10^6/uL (4.5-5.90); Red Cell Distribution Width 14.8 % (11.8-14.3); White Blood Cell 8.4 10^3/uL (4.4-10.8)
[2024-08-14] MEDS ORDERED: DIGOXIN 0.125 MG TAB PO SCH (10:00)
[2024-08-14] MEDS ORDERED: HALOPERIDOL LACTATE 5 MG/ML INJ VIAL IM PRN (11:00)
[2024-08-14] MEDS: SODIUM CHLORIDE 0.9% 1,000 ML IV SCH (11:30)
[2024-08-14] MEDS ORDERED: METOPROLOL TARTRATE 1MG/1ML-5ML VIAL IV PRN (11:30)
--- NOTE | 2024-08-14 12:29 | DVHPN2 ---
Progress Note - Dictate Date Seen: Aug 14, 2024 Medical Necessity Reason Pt with a Central, PICC or Fol: No Subjective Patient is confused and agitated at times today. Patient has had a fever of 101 this morning. MRI of the brain is not done given this is weekend and apparently pacemaker take has not come to change the pacemaker mode to MRI mode. I have signed the MRI form yesterday afternoon when I have evaluated the patient in the ER and discussed with the nurse in the ER to have the tech come and changed. vital signs Vital Sign Date Time Temp Pulse Resp B/P (MAP) Pulse Ox O2 Delivery O2 Flow Rate FiO2 08/14/24 08:46 101.1 114 18 110/66 (81) 97 101.1 08/13/24 20:00 Room Air* 0 21 Total Intake and Output 08/13/24 08/13/24 08/14/24 15:00 23:00 07:00 Intake Total 1000 ml 585 ml 125 ml Output Total 550 ml Balance 1000 ml 585 ml -425 ml medications Current Medications Medications Dose Ordered Sig/Iron Route Start Time Stop Time Status Last Admin Dose Admin Allopurinol 100 mg DAILY PO 08/14/24 10:00 Calcitriol 0.25 mcg DAILY PO 08/14/24 10:00 Finasteride 5 mg DAILY PO 08/14/24 10:00 Acetaminophen/ Hydrocodone Bitart 5 tab Q6HPRN PRN PO 08/13/24 13:30 Cancel Pantoprazole Sodium 40 mg DAILY PO 08/14/24 10:00 Sennosides 8.6 mg DAILY PO 08/14/24 10:00 Tamsulosin HCl 0.4 mg HS PO 08/13/24 22:00 08/13/24 21:52 0.4 MG Metoprolol Tartrate 100 mg BID PO 08/13/24 22:00 08/13/24 21:52 100 MG Nitroglycerin 0.4 mg Q5MINP PRN SL 08/13/24 13:45 Morphine Sulfate 2 mg Q30M PRN IV 08/13/24 13:45 Ondansetron HCl 4 mg Q4HPRN PRN IV 08/13/24 13:45 Acetaminophen 650 mg Q6HP PRN PO 08/13/24 13:45 Famotidine 20 mg DAILY IV 08/14/24 10:00 Acetaminophen/ Hydrocodone Bitart 1 tab Q4HPRN PRN PO 08/13/24 15:15 08/13/24 16:14 1 TAB Lorazepam 0.5 mg Q8HP PRN IV 08/13/24 17:00 Piperacillin Sod/ Tazobactam Sod 100 ml @ 25 mls/hr Q8H IV 08/14/24 02:15 08/14/24 02:23 25 MLS/HR Haloperidol Lactate 2 mg Q6HPRN PRN IM 08/14/24 11:00 Sodium Chloride 1,000 ml @ 75 mls/hr [id number] IV 08/14/24 11:30 Digoxin 125 mcg DAILY IV 08/15/24 10:00 Metoprolol Tartrate 1.25 mg Q6HPRN PRN IV 08/14/24 11:30 Enoxaparin Sodium 100 mg Q12HR SC 08/14/24 22:00 objective Agitated at times and confused. Knows his name. HEENT pupils equal round react to light. Oropharynx clear with a poor dentition. Neck supple. Heart regular rate and rhythm S1-S2. Lungs fair air movement without any audible wheezing or rales. Abdomen soft nontender positive bowel sounds. Extremities no edema positive pulses. Both feet ventral surface chronic ulcer noted. No drainage or foul smell noted. neurologic able to move all four extremities. No gross weakness or deficits noted. laboratory and microbiology Laboratory Tests 08/14/24 06:33 Test 08/14/24 06:33 Range/Units Serum Glucose 94 74-106 mg/dL Assessment/Plan Patient has pacemaker but does have underlying history of AFib and is on Xarelto at home. For now we will continue Lovenox subQ while in the hospital given his confusion. Hold Xarelto. I will have Neurological consultation with the weekend on-call physician. Otherwise Haldol as needed for agitation. Continue current antibiotics and fluids as well as supportive care and treatment as he is on. Further clinical management per clinical course, pending evaluations and recommendations from the consultants. Discussed with the nurse at bedside regarding care plan. Problems(with codes): (1) Encephalopathy, metabolic (2) Anomic aphasia Plan discussed with: Other JELENA JONES MD Aug 14, 2024 12:29
[2024-08-14] MEDS: FAMOTIDINE (10MG/ML) 2ML VL IV SCH (14:03)
[2024-08-14] MEDS: PANTOPRAZOLE 40 MG TAB PO SCH (14:05)
[2024-08-14] MEDS: ALLOPURINOL 100 MG TAB PO SCH (14:05)
[2024-08-14] MEDS: CALCITRIOL 0.25 MCG CAP PO SCH (14:05)
[2024-08-14] MEDS: FINASTERIDE 5 MG TAB PO SCH (14:05)
[2024-08-14] MEDS: SENNA 8.6 MG TAB PO SCH (14:09)
--- NOTE | 2024-08-14 14:42 | DVHINCON2 ---
Date of service: Aug 14, [address] mejia Family History: FH: diabetes mellitus G8 SISTER FH: leukemia G8 BROTHER Allergies: Coded Allergies: NO KNOWN ALLERGIES (Unverified , 03/30/24) Home Meds Active Scripts Pantoprazole Sodium Sesquihydr (Protonix) 40 Mg Tab, 40 MG PO DAILY for 7 Days, #7 TAB Prov:YOLY SHEEHAN MD 06/27/24 Finasteride (Finasteride) 5 Mg Tab, 1 TAB PO DAILY, #30 TAB Prov:JELENA JONES MD 04/07/24 Senna (Senokot) 8.6 Mg Tab, 1 TAB PO DAILY, #14 TAB Prov:JELENA JONES MD 04/07/24 Hydrocodone-Acetaminophen (Hydrocodone Bitartrate/AC 5-325 mg) 1 Tab Tab, 5 TAB PO Q6HPRN PRN for PAIN SCALE 7 THRU 10, #14 TAB Prov:JELENA JONES MD 04/07/24 Allopurinol (Allopurinol) 100 Mg Tab, 1 TAB PO DAILY for 19 Days Prov:JELENA JONES MD 04/07/24 Tamsulosin Hcl (Tamsulosin Hcl) 0.4 Mg Cap, 2 CAP PO HS, #30 CAP Prov:JELENA JONES MD 04/07/24 Reported Medications Atorvastatin Calcium (Lipitor) 10 Mg Tab, 1 TAB PO QPM, #90 TAB 1 Refill 08/13/24 Furosemide (Furosemide) 40 Mg Tab, 40 MG PO DAILY for 30 Days 08/13/24 Rivaroxaban (Xarelto Tablet) 15 Mg Tb, 15 MG PO DAILY, TAB 08/13/24 Digoxin (Digoxin) 125 Mcg Tab, 125 MCG PO DAILY, TAB 08/13/24 Gabapentin (Gabapentin) 300 Mg Cap, 1 CAP PO BID 03/30/24 Metoprolol Tartrate (Metoprolol Tartrate) 100 Mg Tab, 1 TAB PO BID 03/30/24 Calcitriol (Calcitriol) 0.25 Mcg Cap, 1 CAP PO DAILY 03/30/24 Current Medications Current Medications Medications (Trade) Dose Ordered Sig/Iron Route PRN Reason Start Time Stop Time Status Last Admin Allopurinol (Zyloprim Tablet) 100 mg DAILY PO 08/14/24:00 08/14/24 14:05 Calcitriol (Rocaltrol Capsule) 0.25 mcg DAILY PO 08/14/24 10:00 08/14/24 14:05 Digoxin (Lanoxin Tablet) 0.125 mg DAILY PO 08/14/24 10:00 08/14/24 11:35 DC Finasteride (Proscar Tablet) 5 mg DAILY PO 08/14/24 10:00 08/14/24 14:05 Gabapentin (Neurontin Capsule) 300 mg BID PO 08/13/24 22:00 08/14/24 11:35 DC 08/13/24 21:52 Pantoprazole Sodium (Protonix Tablet) 40 mg DAILY PO 08/14/24 10:00 08/14/24 14:05 Sennosides (Senokot Tablet) 8.6 mg DAILY PO 08/14/24 10:00 08/14/24 14:09 Tamsulosin HCl (Flomax) 0.4 mg HS PO 08/13/24 22:00 08/13/24 21:52 Metoprolol Tartrate (Lopressor Tablet) 100 mg BID PO 08/13/24 22:00 08/14/24 14:05 Piperacillin Sod/ Tazobactam Sod 100 ml @ 25 mls/hr Q8HR IV 08/13/24 22:00 08/14/24 02:11 DC Famotidine (Pepcid Injection) 20 mg DAILY IV 08/14/24 10:00 08/14/24 14:03 Acetaminophen/ Hydrocodone Bitart (Louisa 5/325MG Tab) 1 tab Q4HPRN PRN PO MODERATE PAIN (4-6 PAIN SCALE) 08/13/24 15:15 08/14/24 14:05 Lorazepam (Ativan Inj) 0.5 mg Q8HP PRN IV ANXIETY 08/13/24 17:00 Piperacillin Sod/ Tazobactam Sod 100 ml @ 25 mls/hr Q8H IV 08/14/24 02:15 08/14/24 14:06 Haloperidol Lactate (Haldol) 2 mg Q6HPRN PRN IM AGITATION 08/14/24 11:00 Sodium Chloride 1,000 ml @ 75 mls/hr [id number] IV 08/14/24 11:30 Digoxin (Lanoxin Injection) 125 mcg DAILY IV 08/15/24 10:00 Metoprolol Tartrate (Lopressor) 1.25 mg Q6HPRN PRN IV HEART RATE GREATER THAN 140 08/14/24 11:30 Enoxaparin Sodium (Lovenox) 100 mg Q12HR SC 08/14/24 22:00 Vital Signs Vital Signs Date Time Temp Pulse Resp B/P (MAP) Pulse Ox O2 Delivery O2 Flow Rate FiO2 08/14/24 14:05 98 135/65 08/14/24 12:36 99.1 16 97 99.1 08/14/24 08:00 Room Air* 0 21 Labs/Diagnostic Data Labs Test 08/14/24 13:43 08/14/24 12:51 08/14/24 06:33 08/13/24 06:40 Range/Units White Blood Count 8.4 4.4-10.8 10^3/uL Red Blood Count 3.94 L 4.5-5.90 10^6/uL Hemoglobin 11.4 L 13.5-17.5 g/dL Hematocrit 34.8 L 41.0-53.0 % Mean Corpuscular Volume 88.3 80.0-100.0 fL Mean Corpuscular Hemoglobin 29.1 28.0-32.0 pg Mean Corpuscular Hemoglobin Concent 32.9 32.0-36.0 g/dL Red Cell Distribution Width 14.8 H 11.8-14.3 % Platelet Count 250 140-450 10^3/uL Mean Platelet Volume 7.4 6.9-10.8 fL Neutrophils (%) (Auto) 84.1 H 37.0-80.0 % Lymphocytes (%) (Auto) 5.3 L 10.0-50.0 % Monocytes (%) (Auto) 10.3 0.0-12.0 % Eosinophils (%) (Auto) 0.1 0.0-7.0 % Basophils (%) (Auto) 0.2 0.0-2.0 % Neutrophils # (Auto) 7.1 1.6-8.6 10 ^3/uL Lymphocytes # (Auto) 0.4 0.4-5.4 10 ^3/uL Monocytes # (Auto) 0.9 0-1.3 10 ^3/uL Eosinophils # (Auto) 0 0-0.8 10 ^3/uL Basophils # (Auto) 0 0-0.2 10 ^3/uL Nucleated Red Blood Cells 0.0 % Sodium Level 143 136-145 mmol/L Potassium Level 3.4 L 3.5-5.1 mmol/L Chloride Level 110 H 98-107 mmol/L Carbon Dioxide Level 19 L 20-31 mmol/L Anion Gap 14 5-15 Blood Urea Nitrogen 23 9-23 mg/dL Creatinine 1.52 H 0.700-1.30 mg/dL Glomerular Filtration Rate Calc 47 >90 mL/min BUN/Creatinine Ratio 15.1 10.0-20.0 Serum Glucose 94 74-106 mg/dL Calcium Level 9.8 8.7-10.4 mg/dL Thyroid Stimulating Hormone (TSH) 1.21 0.55-4.78 uIU/mL Prothrombin Time 14.0 H 9.3-11.8 sec Prothrombin Time INR 1.36 H 0.9-1.15 Activated Partial Thromboplast Time 42.1 H 24.5-34.5 SEC D-Dimer, Quantitative 0.85 H 0.0-0.49 mg/L FEU Total Bilirubin 0.9 0.2-1.0 mg/dL Aspartate Amino Transferase (AST) 36 13-40 U/L Alanine Aminotransferase (ALT) 18 7-40 U/L Alkaline Phosphatase 101 46-116 U/L Troponin I High Sensitivity 13 </=54 ng/L Total Protein 7.8 5.7-8.2 g/dL Albumin 4.2 3.2-4.8 g/dL Plasma/Serum Blood Alcohol < 3.0 <10 mg/dL Test 08/13/24 06:39 08/13/24 06:21 Range/Units Urine Color Yellow Yellow Urine Clarity Clear Clear Urine pH 5.5 5.0-9.0 Urine Specific [place] 1.016 1.001-1.035 Urine Protein Negative Negative Urine Ketones Negative Negative Urine Blood Negative Negative /uL Urine Nitrite Negative Negative Urine Bilirubin Negative Negative Urine Urobilinogen Normal Negative mg/dL Urine Leukocyte Esterase Negative Negative /uL Urine RBC <1 0 - 3 /hpf Urine Microscopic WBC 1 0-3 /HPF Urine Squamous Epithelial Cells Few <5 /hpf Urine Bacteria None seen None Seen /hpf Urine Hyaline Casts Few 0 - 2 /lpf Urine Glucose Normal Normal mg/dL Urine Opiates Screen Pos NEGATIVE Urine Fentanyl Screen Neg NEGATIVE Urine Barbiturates Screen Neg NEGATIVE Urine Phencyclidine Screen Neg NEGATIVE Urine Amphetamines Screen Neg NEGATIVE Urine Benzodiazepines Screen Neg NEGATIVE Urine Cocaine Screen Neg NEGATIVE Urine Cannabinoids Screen Pos NEGATIVE POC Glucose 93 70-106 mg/dl Microbiology Date/Time Source Procedure Growth Status 08/13/24 06:40 Blood Blood Culture - Preliminary NO GROWTH AFTER 24 HOURS OF INCUBATION. Resulted 08/13/24 06:39 Voided Urine Urine Culture - Preliminary Resulted MAXIMINO JEFFERSON MD Aug 14, 2024 14:41
--- NOTE | 2024-08-14 21:22 | DVHINCON2 ---
Date of service: Aug 14, [address] Jones Reason for Consultation ALOC, history of stroke History of Present Illness Mr. Sequeira is a 73 years old right-handed gentleman with a history of hypertension, atrial fibrillation on Xarelto, congestive heart failure, chronic kidney failure, chronic low back pain, degenerative disc disease, the patient was brought to the hospital on 08/13/2024 with a chief company of altered mental status, restless less at home. At this time, he was awake, but is only oriented to person and place, reasonable social skills, but not able to provide history For 3-4 days of time, the patient was has had confusion, difficulty express himself, he also had restless (not able to to sit still), but otherwise no other acute illness Before 03/2024, the patient was had confusion, he was seen in the [facility] and after CT and MR brain scan, he was said to have a stroke. But the patient was did not have focal weakness numbness, at home, he was on Xarelto for AFib, he also takes a cholesterol medication, according to our record, Lipitor He has a lot of burning pain in the feet for more than 20 years, he was on gabapentin 300 mg at bedtime said he has lost a lot of weight over the six months, and she complained of abdominal painful three weeks. He was to have GI evaluation with his doctor He spiked temperature in the hospital [phone] Urinalysis, 08/14/2024: WBC: 1, urine leukocyte esterase: Negative UDS, 08/13/2024: Cannabinoids WBC/HB/PLT/MCV, 08/14/2024: 8.4/11.4/250/88.3 PT/INR/PTT, 08/13/2024: 14/1.36/42.1 BUN/CR, 08/14/2024: 23/1.52 HCO3, 08/14/2024: 19 Liver function tests, 08/13/2024: Unremarkable TSH, 08/14/2024: 1.2 Chest x-ray, 08/13/2024: No evidence of acute intracranial abnormality. CT head, 08/13/2024: No evidence of acute intracranial abnormality. Past Medical History Hypertension, atrial fibrillation, congestive heart failure, chronic kidney failure, chronic back pain, obesity, degenerative disc disease, Past Surgical History Lumbar spine surgery, pacemaker insertion, cholecystectomy Family History: FH: diabetes mellitus G8 SISTER FH: leukemia G8 BROTHER Family History Diabetes, leukemia Social History He was tobacco smoker, no history of alcohol or recreational substance abuse Allergies: Coded Allergies: NO KNOWN ALLERGIES (Unverified , 03/30/24) Home Meds Active Scripts Pantoprazole Sodium Sesquihydr (Protonix) 40 Mg Tab, 40 MG PO DAILY for 7 Days, #7 TAB Prov:YOLY SHEEHAN MD 06/27/24 Finasteride (Finasteride) 5 Mg Tab, 1 TAB PO DAILY, #30 TAB Prov:JELENA JONES MD 04/07/24 Senna (Senokot) 8.6 Mg Tab, 1 TAB PO DAILY, #14 TAB Prov:JELENA JONES MD 04/07/24 Hydrocodone-Acetaminophen (Hydrocodone Bitartrate/AC 5-325 mg) 1 Tab Tab, 5 TAB PO Q6HPRN PRN for PAIN SCALE 7 THRU 10, #14 TAB Prov:JELENA JONES MD 04/07/24 Allopurinol (Allopurinol) 100 Mg Tab, 1 TAB PO DAILY for 19 Days Prov:JELENA JONES MD 04/07/24 Tamsulosin Hcl (Tamsulosin Hcl) 0.4 Mg Cap, 2 CAP PO HS, #30 CAP Prov:JELENA JONES MD 04/07/24 Reported Medications Atorvastatin Calcium (Lipitor) 10 Mg Tab, 1 TAB PO QPM, #90 TAB 1 Refill 08/13/24 Furosemide (Furosemide) 40 Mg Tab, 40 MG PO DAILY for 30 Days 08/13/24 Rivaroxaban (Xarelto Tablet) 15 Mg Tb, 15 MG PO DAILY, TAB 08/13/24 Digoxin (Digoxin) 125 Mcg Tab, 125 MCG PO DAILY, TAB 08/13/24 Gabapentin (Gabapentin) 300 Mg Cap, 1 CAP PO BID 03/30/24 Metoprolol Tartrate (Metoprolol Tartrate) 100 Mg Tab, 1 TAB PO BID 03/30/24 Calcitriol (Calcitriol) 0.25 Mcg Cap, 1 CAP PO DAILY 03/30/24 Current Medications Current Medications Medications (Trade) Dose Ordered Sig/Iron Route PRN Reason Start Time Stop Time Status Last Admin Allopurinol (Zyloprim Tablet) 100 mg DAILY PO 08/14/24 10:00 08/14/24 14:05 Calcitriol (Rocaltrol Capsule) 0.25 mcg DAILY PO 08/14/24 10:00 08/14/24 14:05 Digoxin (Lanoxin Tablet) 0.125 mg DAILY PO 08/14/24 10:00 08/14/24 11:35 DC Finasteride (Proscar Tablet) 5 mg DAILY PO 08/14/24 10:00 08/14/24 14:05 Gabapentin (Neurontin Capsule) 300 mg BID PO 08/13/24 22:00 08/14/24 11:35 DC 08/13/24 21:52 Pantoprazole Sodium (Protonix Tablet) 40 mg DAILY PO 08/14/24 10:00 08/14/24 14:05 Sennosides (Senokot Tablet) 8.6 mg DAILY PO 08/14/24 10:00 08/14/24 14:09 Tamsulosin HCl (Flomax) 0.4 mg HS PO 08/13/24 22:00 08/13/24 21:52 Metoprolol Tartrate (Lopressor Tablet) 100 mg BID PO 08/13/24 22:00 08/14/24 14:05 Piperacillin Sod/ Tazobactam Sod 100 ml @ 25 mls/hr Q8HR IV 08/13/24 22:00 08/14/24 02:11 DC Famotidine (Pepcid Injection) 20 mg DAILY IV 08/14/24 10:00 08/14/24 14:03 Piperacillin Sod/ Tazobactam Sod 100 ml @ 25 mls/hr Q8H IV 08/14/24 02:15 08/14/24 18:15 Haloperidol Lactate (Haldol) 2 mg Q6HPRN PRN IM AGITATION 08/14/24 11:00 Sodium Chloride 1,000 ml @ 75 mls/hr [id number] IV 08/14/24 11:30 08/14/24 11:30 Digoxin (Lanoxin Injection) 125 mcg DAILY IV 08/15/24 10:00 Metoprolol Tartrate (Lopressor) 1.25 mg Q6HPRN PRN IV HEART RATE GREATER THAN 140 08/14/24 11:30 Enoxaparin Sodium (Lovenox) 100 mg Q12HR SC 08/14/24 22:00 Review of Systems As above, the other systems are negative Vital Signs Vital Signs Date Time Temp Pulse Resp B/P (MAP) Pulse Ox O2 Delivery O2 Flow Rate FiO2 08/14/24 21:00 97.6 98 18 139/67 (91) 98 97.6 08/14/24 20:00 Room Air* 0 21 Physical Exam GENERAL EXAM: General: the patient is well developed and nourished. No acute distress. HEENT: Normocephalic, neck is supple, no carotid bruits. No mass. RESPIRATORY: Normal respiratory effort with symmetrical lung expansion. Lungs clear to auscultation. CARDIOVASCULAR: Regular rate and rhythm with no murmurs. S1, S2. ABDOMEN: Soft, nontender, normal bowel sound MUSCULOSKELETAL EXAM: The skin of the legs and feet is red and thin, with healing lesions NEUROLOGICAL: MENTAL STATUS: Awake and alert. Oriented to person, place, SPEECH, LANGUAGE, HIGHER CORTICAL FUNCTION: no aphasia or dysathria. CRANIAL NERVES: #2: Intact visual [place] to confrontation. T #3,4,6: Pupils are equal, round and reactive. EOMs full and conjugate. Mild bilateral gaze evoked nystagmus. #5: Facial sensation intact in all three divisions bilaterally. Mandibular strength intact. #7: Facial muscles symmetrical and strength intact. #8: Hearing grossly normal to voice. #9,10: Uvula and soft palate rise in the midline. Swallow and voice are normal. #11: Trapezius and sternomastoid strength intact bilaterally. #12: Tongue midline. No fasciculations or atrophy. SENSATION: Sensation to touch and pinprick is okay MOTOR: Normal tone in the upper and lower extremity. Normal muscle bulk. No f asciculations. No abnormal movements or posturing. Muscle strength of the major groups in the upper extremities is 5/5. He moves both legs. REFLEXES: Deep tendon reflexes normal and symmetrical. No pathological reflexes. CEREBELLAR/COORDINATION: Deferred GAIT/STATION: deferred. Labs/Diagnostic Data Labs Test 08/14/24 15:43 08/14/24 06:33 08/13/24 06:40 08/13/24 06:39 Range/Units Lactic Acid Level 1.0 0.4-2.0 mmol/L White Blood Count 8.4 4.4-10.8 10^3/uL Red Blood Count 3.94 L 4.5-5.90 10^6/uL Hemoglobin 11.4 L 13.5-17.5 g/dL Hematocrit 34.8 L 41.0-53.0 % Mean Corpuscular Volume 88.3 80.0-100.0 fL Mean Corpuscular Hemoglobin 29.1 28.0-32.0 pg Mean Corpuscular Hemoglobin Concent 32.9 32.0-36.0 g/dL Red Cell Distribution Width 14.8 H 11.8-14.3 % Platelet Count 250 140-450 10^3/uL Mean Platelet Volume 7.4 6.9-10.8 fL Neutrophils (%) (Auto) 84.1 H 37.0-80.0 % Lymphocytes (%) (Auto) 5.3 L 10.0-50.0 % Monocytes (%) (Auto) 10.3 0.0-12.0 % Eosinophils (%) (Auto) 0.1 0.0-7.0 % Basophils (%) (Auto) 0.2 0.0-2.0 % Neutrophils # (Auto) 7.1 1.6-8.6 10 ^3/uL Lymphocytes # (Auto) 0.4 0.4-5.4 10 ^3/uL Monocytes # (Auto) 0.9 0-1.3 10 ^3/uL Eosinophils # (Auto) 0 0-0.8 10 ^3/uL Basophils # (Auto) 0 0-0.2 10 ^3/uL Nucleated Red Blood Cells 0.0 % Sodium Level 143 136-145 mmol/L Potassium Level 3.4 L 3.5-5.1 mmol/L Chloride Level 110 H 98-107 mmol/L Carbon Dioxide Level 19 L 20-31 mmol/L Anion Gap 14 5-15 Blood Urea Nitrogen 23 9-23 mg/dL Creatinine 1.52 H 0.700-1.30 mg/dL Glomerular Filtration Rate Calc 47 >90 mL/min BUN/Creatinine Ratio 15.1 10.0-20.0 Serum Glucose 94 74-106 mg/dL Calcium Level 9.8 8.7-10.4 mg/dL Thyroid Stimulating Hormone (TSH) 1.21 0.55-4.78 uIU/mL Prothrombin Time 14.0 H 9.3-11.8 sec Prothrombin Time INR 1.36 H 0.9-1.15 Activated Partial Thromboplast Time 42.1 H 24.5-34.5 SEC D-Dimer, Quantitative 0.85 H 0.0-0.49 mg/L FEU Total Bilirubin 0.9 0.2-1.0 mg/dL Aspartate Amino Transferase (AST) 36 13-40 U/L Alanine Aminotransferase (ALT) 18 7-40 U/L Alkaline Phosphatase 101 46-116 U/L Troponin I High Sensitivity 13 </=54 ng/L Total Protein 7.8 5.7-8.2 g/dL Albumin 4.2 3.2-4.8 g/dL Plasma/Serum Blood Alcohol < 3.0 <10 mg/dL Urine Color Yellow Yellow Urine Clarity Clear Clear Urine pH 5.5 5.0-9.0 Urine Specific [place] 1.016 1.001-1.035 Urine Protein Negative Negative Urine Ketones Negative Negative Urine Blood Negative Negative /uL Urine Nitrite Negative Negative Urine Bilirubin Negative Negative Urine Urobilinogen Normal Negative mg/dL Urine Leukocyte Esterase Negative Negative /uL Urine RBC <1 0 - 3 /hpf Urine Microscopic WBC 1 0-3 /HPF Urine Squamous Epithelial Cells Few <5 /hpf Urine Bacteria None seen None Seen /hpf Urine Hyaline Casts Few 0 - 2 /lpf Urine Glucose Normal Normal mg/dL Urine Opiates Screen Pos NEGATIVE Urine Fentanyl Screen Neg NEGATIVE Urine Barbiturates Screen Neg NEGATIVE Urine Phencyclidine Screen Neg NEGATIVE Urine Amphetamines Screen Neg NEGATIVE Urine Benzodiazepines Screen Neg NEGATIVE Urine Cocaine Screen Neg NEGATIVE Urine Cannabinoids Screen Pos NEGATIVE Test 08/13/24 06:21 Range/Units POC Glucose 93 70-106 mg/dl Microbiology Date/Time Source Procedure Growth Status 08/13/24 06:40 Blood Blood Culture - Preliminary NO GROWTH AFTER 24 HOURS OF INCUBATION. Resulted 08/13/24 06:39 Voided Urine Urine Culture - Preliminary Resulted Assessment Altered mental status Metabolic encephalopathy Rule out acute central nervous system etiology, ? Stroke, ? Partial complex seizure Metabolic acidosis Polyneuropathy Abdominal pain, weight loss, etiology unclear Fever, to rule out sepsis Plan/Recommendation Monitoring Supportive treatment Telemetry Vitamin B12, folic acid, SIFE RPR Blood culture EEG MRI brain scan IV antibiotics Lovenox 100 mg subQ b.i.d. Increase the gabapentin to 200 mg t.i.d. Foot care Daily foot inspection GI consult Re: Abdominal discomfort, weight loss More recommendation per clinical course Prognosis: Poor This medical document was created using an electronic medical record system with [email or web address] dictation system. Although this document has been carefully reviewed, there may still be some phonetic and typographical errors. These areas are purely typographical due to imperfections of the software programs, and do not reflect any compromise in the patient's medical care. Plan discussed with: Spouse, Other ZEENAT MCKEON MD Aug 14, 2024 21:21
[2024-08-14] MEDS: ENOXAPARIN SOD 100 MG/1 ML SYRINGE SC SCH (21:50)
[2024-08-14] MEDS ORDERED: LORazepam 2MG/ML-1ML VIAL IV PRN (22:15)
[2024-08-15] VITALS (9 sets, daily range): BP systolic 118–152; BP diastolic 67–83; PULSE 78–107; RESP 16–18; TEMP 97.7–98.7; O2SAT 94–98
[2024-08-15] MEDS: GABAPENTIN 100 MG CAP PO SCH (05:02)
[2024-08-15 07:56] LABS: Basophils # (auto) 0 10 ^3/uL (0-0.2); Basophils % (auto) 0.3 % (0.0-2.0); Eosinophils # (auto) 0 10 ^3/uL (0-0.8); Eosinophils % (auto) 0.4 % (0.0-7.0); Hematocrit 31.8 % (41.0-53.0); Hemoglobin 10.6 g/dL (13.5-17.5); Lymphocytes # (auto) 0.8 10 ^3/uL (0.4-5.4); Lymphocytes % (auto) 10.2 % (10.0-50.0); Mean Corpuscular Hemoglobin 29.4 pg (28.0-32.0); Mean Corpuscular Hgb Conc. 33.4 g/dL (32.0-36.0); Monocytes # (auto) 0.9 10 ^3/uL (0-1.3); Monocytes % (auto) 10.8 % (0.0-12.0); Neutrophils # (auto) 6.3 10 ^3/uL (1.6-8.6); Neutrophils % (auto) 78.3 % (37.0-80.0); Nucleated Red Blood Cells % 0.1 %; Platelet Count (auto) 215 10^3/uL (140-450); Red Blood Cells 3.62 10^6/uL (4.5-5.90); Red Cell Distribution Width 15.1 % (11.8-14.3); White Blood Cell 8.1 10^3/uL (4.4-10.8)
[2024-08-15 08:05] LABS: Sodium 142 mmol/L (136-145)
[2024-08-15 08:06] LABS: Anion Gap 10 (5-15); Calcium 9.2 mg/dL (8.7-10.4); Carbon Dioxide 22 mmol/L (20-31)
[2024-08-15 08:11] LABS: BUN/Creatinine Ratio 15.6 (10.0-20.0); Blood Urea Nitrogen 22 mg/dL (9-23)
[2024-08-15 08:15] LABS: Chloride 110 mmol/L (98-107); Glucose 110 mg/dL (74-106)
[2024-08-15] MEDS: DIGOXIN (250MCG/ML) 2 ML AMPULE IV SCH (09:22)
--- NOTE | 2024-08-15 14:06 | DVHCONRES ---
Date Seen: Aug 15, 2024 Resident Creating Document: CARLA BYERS RESIDENT Referring Physician dr woo Reason for Consultation Weight loss, abdominal discomfort History of Present Illness Patient is 73-year-old male with past medical history of urinary retention, atri al fibrillation on Xarelto, CHF, CKD, hypertension, DJD of lumbar, BPH who brought to the hospital by for altered level of consciousness for past four days. At the time of evaluation patient was alert oriented to time place and person he was able to answer all the questions. He was not aware why he was brought to the hospital however as per patient his thought he is in bad shape. Patient is complaining of mild lower abdominal discomfort for the past two weeks, he did not had any bowel movements in last one week, as per patient his having issue with constipation for long time. Patient also had severe BPH and he was treated with tamsulosin and finasteride. Patient also complaining of significant weight loss of 40-50 lb in last two months, given patient's poor historian, not able to provide proper history given his age he does not feel anything wrong. GI has been consulted for further evaluation weight loss and abdominal discomfort. PMH:urinary retention, atrial fibrillation on Xarelto, CHF, CKD, hypertension, DJD of lumbar, BPH Past surgical history: Lumbar surgery, no endoscopy or colonoscopy. Allergy none Social history: Patient lives with , no history of alcohol or cigarette smoking. Family History: FH: diabetes mellitus G8 SISTER FH: leukemia G8 BROTHER Allergies: Coded Allergies: NO KNOWN ALLERGIES (Unverified , 03/30/24) Home Meds Active Scripts Pantoprazole Sodium Sesquihydr (Protonix) 40 Mg Tab, 40 MG PO DAILY for 7 Days, #7 TAB Prov:YOLY SHEEHAN MD 06/27/24 Finasteride (Finasteride) 5 Mg Tab, 1 TAB PO DAILY, #30 TAB Prov:JELENA JONES MD 04/07/24 Senna (Senokot) 8.6 Mg Tab, 1 TAB PO DAILY, #14 TAB Prov:JELENA JONES MD 04/07/24 Hydrocodone-Acetaminophen (Hydrocodone Bitartrate/AC 5-325 mg) 1 Tab Tab, 5 TAB PO Q6HPRN PRN for PAIN SCALE 7 THRU 10, #14 TAB Prov:JELENA JONES MD 04/07/24 Allopurinol (Allopurinol) 100 Mg Tab, 1 TAB PO DAILY for 19 Days Prov:JELENA JONES MD 04/07/24 Tamsulosin Hcl (Tamsulosin Hcl) 0.4 Mg Cap, 2 CAP PO HS, #30 CAP Prov:JELENA JONES MD 04/07/24 Reported Medications Atorvastatin Calcium (Lipitor) 10 Mg Tab, 1 TAB PO QPM, #90 TAB 1 Refill 08/13/24 Furosemide (Furosemide) 40 Mg Tab, 40 MG PO DAILY for 30 Days 08/13/24 Rivaroxaban (Xarelto Tablet) 15 Mg Tb, 15 MG PO DAILY, TAB 08/13/24 Digoxin (Digoxin) 125 Mcg Tab, 125 MCG PO DAILY, TAB 08/13/24 Gabapentin (Gabapentin) 300 Mg Cap, 1 CAP PO BID 03/30/24 Metoprolol Tartrate (Metoprolol Tartrate) 100 Mg Tab, 1 TAB PO BID 03/30/24 Calcitriol (Calcitriol) 0.25 Mcg Cap, 1 CAP PO DAILY 03/30/24 Current Medications Current Medications Medications (Trade) Dose Ordered Sig/Iron Route PRN Reason Start Time Stop Time Status Last Admin Digoxin (Lanoxin Injection) 125 mcg DAILY IV 08/15/24 10:00 08/15/24 09:22 Enoxaparin Sodium (Lovenox) 100 mg Q12HR SC 08/14/24 22:00 08/15/24 09:20 Gabapentin (Neurontin Capsule) 200 mg TID PO 08/15/24 06:00 08/15/24 05:02 Lorazepam (Ativan Inj) 1 mg ONCE PRN IV MRI 08/14/24 22:15 Enteral Nutritional Formula (Ensure Enlive) 240 ml BIDWM PO 08/15/24 18:00 Review of Systems Patient is complaining of constipation for seven days, weight loss. Eyes: No Pain, No Vision change, No Conjunctivae inflammation, No Eyelid inflammation, No Other, No Redness ENT: No Ear pain, No Ear discharge, No Nose pain, No Nose discharge, No Nose congestion, No Mouth pain, No Mouth swelling, No Throat pain, No Throat swelli ng, No Other Cardiovascular: No Chest Pain, No Palpitations, No Orthopnea, No Paroxysmal Noc. Dyspnea, No Edema, No Lt Headedness, No Other Respiratory: No Cough, No Dry, No Shortness of breath, No SOB with excertion, No Wheezing, No Hemoptysis, No Pleuritic Pain, No Sputum, No Other Gastrointestinal: No Nausea, No Vomiting, No Abdominal Pain, No Diarrhea, No Constipation, No Melena, No Hematochezia, No Other Genitourinary: No Dysuria, No Frequency, No Incontinence, No Hematuria, No Retention, No Other Musculoskeletal: No other, No neck pain, No shoulder pain, No arm pain, No back pain, No hand pain, No leg pain, No foot pain Skin: No Rash, No Lesions, No Jaundice, No Bruising, No Other Vital Signs Vital Signs Date Time Temp Pulse Resp B/P (MAP) Pulse Ox O2 Delivery O2 Flow Rate FiO2 08/15/24 09:22 103 08/15/24 09:21 126/71 08/15/24 08:00 18 96 Room Air* 0 21 08/15/24 05:00 97.7 97.7 Physical Exam General Appearance: Cooperative. Well developed. Well nourished. NAD Head Exam: Normal inspection Neck Exam: Normal inspection. Non-tender. Normal alignment Pulmonary/Respiratory: Chest non-tender. Clear bilateral breath sounds Cardiovascular/Chest: Regular rate and rhythm. No murmurs. No JVD. Peripheral Pulses: 2+ Radial (R). 2+ Radial (L). 2+ Pedal (R). 2+ Pedal (L) Abdominal Exam: Normal bowel sounds. Soft. Nontender. No hepatospenomegaly. No masses Ankle Exam: Negative ankle edema Lower extremities: Negative lower extremity edema Neuro/Mental Status: A&O x4. Coherent Thoughts/Psych: Normal thought pattern. Appropriate mood and affect. Good judgement and insight Appearance: In no acute distress Skin Exam: Normal inspection. Normal color. Warm. Dry Labs/Diagnostic Data Labs Test 08/15/24 07:19 08/14/24 15:43 08/14/24 06:33 08/13/24 06:40 Range/Units White Blood Count 8.1 4.4-10.8 10^3/uL Red Blood Count 3.62 L 4.5-5.90 10^6/uL Hemoglobin 10.6 L 13.5-17.5 g/dL Hematocrit 31.8 L 41.0-53.0 % Mean Corpuscular Volume 88.0 80.0-100.0 fL Mean Corpuscular Hemoglobin 29.4 28.0-32.0 pg Mean Corpuscular Hemoglobin Concent 33.4 32.0-36.0 g/dL Red Cell Distribution Width 15.1 H 11.8-14.3 % Platelet Count 215 140-450 10^3/uL Mean Platelet Volume 7.4 6.9-10.8 fL Neutrophils (%) (Auto) 78.3 37.0-80.0 % Lymphocytes (%) (Auto) 10.2 10.0-50.0 % Monocytes (%) (Auto) 10.8 0.0-12.0 % Eosinophils (%) (Auto) 0.4 0.0-7.0 % Basophils (%) (Auto) 0.3 0.0-2.0 % Neutrophils # (Auto) 6.3 1.6-8.6 10 ^3/uL Lymphocytes # (Auto) 0.8 0.4-5.4 10 ^3/uL Monocytes # (Auto) 0.9 0-1.3 10 ^3/uL Eosinophils # (Auto) 0 0-0.8 10 ^3/uL Basophils # (Auto) 0 0-0.2 10 ^3/uL Nucleated Red Blood Cells 0.1 % Sodium Level 142 136-145 mmol/L Potassium Level 3.0 L 3.5-5.1 mmol/L Chloride Level 110 H 98-107 mmol/L Carbon Dioxide Level 22 20-31 mmol/L Anion Gap 10 5-15 Blood Urea Nitrogen 22 9-23 mg/dL Creatinine 1.41 H 0.700-1.30 mg/dL Glomerular Filtration Rate Calc 52 >90 mL/min BUN/Creatinine Ratio 15.6 10.0-20.0 Serum Glucose 110 H 74-106 mg/dL Lactic Acid Level 0.9 0.4-2.0 mmol/L Calcium Level 9.2 8.7-10.4 mg/dL Ammonia < 10 L 11-32 umol/L Thyroid Stimulating Hormone (TSH) 1.21 0.55-4.78 uIU/mL Prothrombin Time 14.0 H 9.3-11.8 sec Prothrombin Time INR 1.36 H 0.9-1.15 Activated Partial Thromboplast Time 42.1 H 24.5-34.5 SEC D-Dimer, Quantitative 0.85 H 0.0-0.49 mg/L FEU Total Bilirubin 0.9 0.2-1.0 mg/dL Aspartate Amino Transferase (AST) 36 13-40 U/L Alanine Aminotransferase (ALT) 18 7-40 U/L Alkaline Phosphatase 101 46-116 U/L Troponin I High Sensitivity 13 </=54 ng/L Total Protein 7.8 5.7-8.2 g/dL Albumin 4.2 3.2-4.8 g/dL Plasma/Serum Blood Alcohol < 3.0 <10 mg/dL Test 08/13/24 06:39 08/13/24 06:21 Range/Units Urine Color Yellow Yellow Urine Clarity Clear Clear Urine pH 5.5 5.0-9.0 Urine Specific [place] 1.016 1.001-1.035 Urine Protein Negative Negative Urine Ketones Negative Negative Urine Blood Negative Negative /uL Urine Nitrite Negative Negative Urine Bilirubin Negative Negative Urine Urobilinogen Normal Negative mg/dL Urine Leukocyte Esterase Negative Negative /uL Urine RBC <1 0 - 3 /hpf Urine Microscopic WBC 1 0-3 /HPF Urine Squamous Epithelial Cells Few <5 /hpf Urine Bacteria None seen None Seen /hpf Urine Hyaline Casts Few 0 - 2 /lpf Urine Glucose Normal Normal mg/dL Urine Opiates Screen Pos NEGATIVE Urine Fentanyl Screen Neg NEGATIVE Urine Barbiturates Screen Neg NEGATIVE Urine Phencyclidine Screen Neg NEGATIVE Urine Amphetamines Screen Neg NEGATIVE Urine Benzodiazepines Screen Neg NEGATIVE Urine Cocaine Screen Neg NEGATIVE Urine Cannabinoids Screen Pos NEGATIVE POC Glucose 93 70-106 mg/dl Microbiology Date/Time Source Procedure Growth Status 08/13/24 06:40 Blood Blood Culture - Preliminary NO GROWTH AFTER 48 HOURS OF INCUBATION. Resulted 08/13/24 06:39 Voided Urine Urine Culture - Final Complete Assessment Abdominal pain ? Rule out malignancy, ? due to constipation, ? due to urinary retention, ? functional. Weight loss ? Rule out malignancy, poor oral intake with malnutrition, underly ing dementia or psychiatric issue, malabsorption Metabolic encephalopathy Chronic back pain ? Acute urinary retention BPH CHF Chronic AFib on anticoagulation Xarelto Presence of pacemaker Hypotension Plan/recommendation Dr. Gant -abdominal pain likely related to severe constipation given no bowel movement in seven days, related to urinary retention given underlying BPH, possible malignancy can not be ruled out as well given significant weight loss. -CT abdomen and pelvis ordered. Pending results. -stool occult study pending -pending bladder scan. -underlying poor intake/age-related depression can not be ruled out. -patient can follow up in outpatient setting for routine colonoscopy. -PUD prophylaxis -counseled on appropriate nutrition and protein intake. -no active GI intervention needed at this point. -we will continue following up with the patient. Plan discussed with: Patient, Other (RN) CARLA BYERS RESIDENT Aug 15, 2024 14:06
--- NOTE | 2024-08-15 14:53 | DVHPN2 ---
Progress Note - Dictate Date Seen: Aug 15, 2024 Medical Necessity Reason Pt with a Central, PICC or Fol: No Subjective Patient's mentation is improved today. Speech is normal. However still some intermittent confusion present with a poor recall of events. In bed without distress. vital signs Vital Sign Date Time Temp Pulse Resp B/P (MAP) Pulse Ox O2 Delivery O2 Flow Rate FiO2 08/15/24 09:22 103 08/15/24 09:21 126/71 08/15/24 08:00 18 96 Room Air* 0 21 08/15/24 05:00 97.7 97.7 Total Intake and Output 08/14/24 08/14/24 08/15/24 15:00 23:00 07:00 Intake Total 600 ml 940 ml 900 ml Output Total 900 ml 300 ml Balance 600 ml 40 ml 600 ml medications Current Medications Medications Dose Ordered Sig/Iron Route Start Time Stop Time Status Last Admin Dose Admin Allopurinol 100 mg DAILY PO 08/14/24 10:00 08/15/24 09:21 100 MG Calcitriol 0.25 mcg DAILY PO 08/14/24 10:00 08/15/24 09:22 0.25 MCG Finasteride 5 mg DAILY PO 08/14/24 10:00 08/15/24 09:20 5 MG Acetaminophen/ Hydrocodone Bitart 5 tab Q6HPRN PRN PO 08/13/24 13:30 Cancel Pantoprazole Sodium 40 mg DAILY PO 08/14/24 10:00 08/15/24 09:21 40 MG Sennosides 8.6 mg DAILY PO 08/14/24 10:00 08/14/24 14:09 8.6 MG Tamsulosin HCl 0.4 mg HS PO 08/13/24 22:00 08/14/24 21:48 0.4 MG Metoprolol Tartrate 100 mg BID PO 08/13/24 22:00 08/15/24 09:21 100 MG Nitroglycerin 0.4 mg Q5MINP PRN SL 08/13/24 13:45 Morphine Sulfate 2 mg Q30M PRN IV 08/13/24 13:45 Ondansetron HCl 4 mg Q4HPRN PRN IV 08/13/24 13:45 Acetaminophen 650 mg Q6HP PRN PO 08/13/24 13:45 Acetaminophen/ Hydrocodone Bitart 1 tab Q4HPRN PRN PO 08/13/24 15:15 08/15/24 09:21 1 TAB Lorazepam 0.5 mg Q8HP PRN IV 08/13/24 17:00 Piperacillin Sod/ Tazobactam Sod 100 ml @ 25 mls/hr Q8H IV 08/14/24 02:15 08/15/24 09:20 25 MLS/HR Haloperidol Lactate 2 mg Q6HPRN PRN IM 08/14/24 11:00 Sodium Chloride 1,000 ml @ 75 mls/hr [id number] IV 08/14/24 11:30 08/14/24 11:30 75 MLS/HR Digoxin 125 mcg DAILY IV 08/15/24 10:00 08/15/24 09:22 125 MCG Metoprolol Tartrate 1.25 mg Q6HPRN PRN IV 08/14/24 11:30 Enoxaparin Sodium 100 mg Q12HR SC 08/14/24 22:00 08/15/24 09:20 100 MG Gabapentin 200 mg TID PO 08/15/24 06:00 08/15/24 05:02 200 MG Lorazepam 1 mg ONCE PRN IV 08/14/24 22:15 Enteral Nutritional Formula 240 ml BIDWM PO 08/15/24 18:00 objective HEENT pupils equal round react to light. Oropharynx clear with a poor dentition. Neck supple. Heart regular rate and rhythm S1-S2. Lungs fair air movement without any audible wheezing or rales. Abdomen soft nontender positive bowel sounds. Extremities no edema positive pulses. Extremities positive distal pedal pulses. No gross weakness or deficits noted. laboratory and microbiology Laboratory Tests 08/15/24 07:19 Test 08/15/24 07:19 Range/Units Serum Glucose 110 H 74-106 mg/dL Assessment/Plan Given his mentation has improved and tolerating oral diet I will resume his oral Xarelto. DC the Lovenox. Patient evaluated by GI for weight loss and a CT of the abdomen and pelvis without contrast is ordered. Evaluated by neurologist as well. Continue present management. Further clinical management per clinical course, pending evaluations and recommendations from the consultants. Discussed with the nurse at bedside regarding care plan. Problems(with codes): (1) Encephalopathy, metabolic (2) Gastritis (3) Pressure ulcer, heel Dietary Evaluation Review Recommendations by RD: Protein Supplementation Comments: 1) Add cardiac restriction to current diet order 2) Rigo NOT recommended d/t patient's CKD 3) Initiate Ensure enlive bid d/t poor PO intake 3) Continue to monitor appetite, labs, and skin integrity Expected Outcomes/Goals: 1) appetite and labs to improve 2) wound to improve 3) f/u in 3-5 days Plan discussed with: Patient, Other JELENA JONES MD Aug 15, 2024 14:53
[2024-08-15] MEDS: RIVAROXABAN 15 MG TAB PO SCH (18:36)
--- NOTE | 2024-08-15 19:18 | DVHEEG2 ---
Neurology EEG Procedural Note Procedural Note EXAM DATE: 08/15/24 REFERRING DOCTOR: Dr. Mckeon TECHNIQUE: Eighteen channels of EEG, 2 channels of EOG, and 1 channel of EKG were recorded using the International 10/20 system. CLINICAL DATA: The patient was referred for an EEG evaluation for the evidence of seizure disorder. MEDICATIONS: See chart BACKGROUND ACTIVITY: The record showed diffuse low amplitude theta activity over both hemispheres, that was reactive to external stimuli ACTIVATION: Hyperventilation: Not done Photic Stimulation: Not down Sleep: Noticed IMPRESSION: This is a mildly abnormal EEG, this EEG is seen in mild cerebral dysfunction due to metabolic/hypoxic encephalopathy or medication effects, please correlate clinically The EKG channel showed an irregular heart rate of 72/minute[place] [address] ZEENAT MCKEON MD Aug 15, 2024 19:18
[2024-08-15] MEDS: Ensure Enlive Vanilla 8oz Bottle PO SCH (19:22)
--- NOTE | 2024-08-15 19:28 | DVHPN2 ---
Progress Note - Dictate Date Seen: Aug 15, 2024 Medical Necessity Reason Pt with a Central, PICC or Fol: No Subjective Mr. Sequeira is a 73 years old right-handed gentleman with a history of hypertension, atrial fibrillation on Xarelto, congestive heart failure, chronic kidney failure, chronic low back pain, degenerative disc disease, the patient was brought to the hospital on 08/13/2024 with a chief company of altered mental status, restless less at home. I have seen and examined the patient, I discussed with his nurse and sitter, he is much better today, alert oriented x3, he reports no new problems He was lot of burning pain and other discomfort in the legs with associated urge to move, especially in the evening when he trying to fall asleep. Gabapentin does not work but causes edema and his doctor is considering different medications Urinalysis, 08/14/2024: WBC: 1, urine leukocyte esterase: Negative UDS, 08/13/2024: Cannabinoids WBC/HB/PLT/MCV, 08/14/2024: 8.4/11.4/250/88.3 PT/INR/PTT, 08/13/2024: 14/1.36/42.1 BUN/CR, 08/14/2024: 23/1.52 HCO3, 08/14/2024: 19 Liver function tests, 08/13/2024: Unremarkable TSH, 08/14/2024: 1.2 Chest x-ray, 08/13/2024: No evidence of acute intracranial abnormality. CT head, 08/13/2024: No evidence of acute intracranial abnormality. vital signs Vital Sign Date Time Temp Pulse Resp B/P (MAP) Pulse Ox O2 Delivery O2 Flow Rate FiO2 08/15/24 17:00 98.0 82 18 144/83 (103) 97 98.0 08/15/24 08:00 Room Air* 0 21 Total Intake and Output 08/14/24 08/14/24 08/15/24 15:00 23:00 07:00 Intake Total 600 ml 940 ml 900 ml Output Total 900 ml 300 ml Balance 600 ml 40 ml 600 ml medications Current Medications Medications Dose Ordered Sig/Iron Route Start Time Stop Time Status Last Admin Dose Admin Allopurinol 100 mg DAILY PO 08/14/24 10:00 08/15/24 09:21 100 MG Calcitriol 0.25 mcg DAILY PO 08/14/24 10:00 08/15/24 09:22 0.25 MCG Finasteride 5 mg DAILY PO 08/14/24 10:00 08/15/24 09:20 5 MG Acetaminophen/ Hydrocodone Bitart 5 tab Q6HPRN PRN PO 08/13/24 13:30 Cancel Pantoprazole Sodium 40 mg DAILY PO 08/14/24 10:00 08/15/24 09:21 40 MG Sennosides 8.6 mg DAILY PO 08/14/24 10:00 08/15/24 10:00 8.6 MG Tamsulosin HCl 0.4 mg HS PO 08/13/24 22:00 08/14/24 21:48 0.4 MG Metoprolol Tartrate 100 mg BID PO 08/13/24 22:00 08/15/24 09:21 100 MG Nitroglycerin 0.4 mg Q5MINP PRN SL 08/13/24 13:45 Morphine Sulfate 2 mg Q30M PRN IV 08/13/24 13:45 Ondansetron HCl 4 mg Q4HPRN PRN IV 08/13/24 13:45 Acetaminophen 650 mg Q6HP PRN PO 08/13/24 13:45 Acetaminophen/ Hydrocodone Bitart 1 tab Q4HPRN PRN PO 08/13/24 15:15 08/15/24 15:38 1 TAB Piperacillin Sod/ Tazobactam Sod 100 ml @ 25 mls/hr Q8H IV 08/14/24 02:15 08/15/24 18:37 25 MLS/HR Haloperidol Lactate 2 mg Q6HPRN PRN IM 08/14/24 11:00 Sodium Chloride 1,000 ml @ 75 mls/hr [id number] IV 08/14/24 11:30 08/15/24 18:52 75 MLS/HR Metoprolol Tartrate 1.25 mg Q6HPRN PRN IV 08/14/24 11:30 Gabapentin 200 mg TID PO 08/15/24 06:00 08/15/24 15:38 200 MG Lorazepam 1 mg ONCE PRN IV 08/14/24 22:15 Enteral Nutritional Formula 240 ml BIDWM PO 08/15/24 18:00 Digoxin 0.125 mg DAILY PO 08/16/24 10:00 Rivaroxaban 15 mg QPM PO 08/15/24 18:00 08/15/24 18:36 15 MG objective General: the patient is well developed and nourished. No acute distress. MUSCULOSKELETAL EXAM: The skin of the legs and feet is red and thin, with healing lesions MENTAL STATUS: Awake and alert. Oriented to person, place, SPEECH, LANGUAGE, HIGHER CORTICAL FUNCTION: no aphasia or dysathria. CRANIAL NERVES: Intact visual medina to confrontation. Pupils are equal, round and reactive. EOMs full and conjugate. Mild bilateral gaze evoked nystagmus. Facial sensation intact in all three divisions bilaterally. Mandibular strength intact. Facial muscles symmetrical and strength intact. SENSATION: Sensation to touch and pinprick is okay MOTOR: Normal tone in the upper and lower extremity. Normal muscle bulk. No fasciculations. No abnormal movements or posturing. Muscle strength of the major groups in the upper extremities is 5/5. He moves both legs. REFLEXES: Deep tendon reflexes normal and symmetrical. No pathological reflexes. CEREBELLAR/COORDINATION: Deferred GAIT/STATION: deferred laboratory and microbiology Laboratory Tests 08/15/24 07:19 Test 08/15/24 07:19 Range/Units Serum Glucose 110 H 74-106 mg/dL Problem List Altered mental status Metabolic encephalopathy Rule out acute central nervous system etiology, ? Stroke, ? Partial complex seizure Metabolic acidosis Polyneuropathy Abdominal pain, weight loss, etiology unclear Fever, to rule out sepsis Assessment/Plan Monitoring Supportive treatment Telemetry Vitamin B12, folic acid, SIFE RPR Blood culture EEG MRI brain scan IV antibiotics Lovenox 100 mg subQ b.i.d. Discontinue gabapentin A trial of Lyrica 50 mg b.i.d. Foot care Daily foot inspection GI consult Re: Abdominal discomfort, weight loss More recommendation per clinical course This medical document was created using an electronic medical record system with Prism Digital dictation system. Although this document has been carefully reviewed, there may still be some phonetic and typographical errors. These areas are purely typographical due to imperfections of the software programs, and do not reflect any compromise in the patient's medical care Prognosis Poor Dietary Evaluation Review Recommendations by RD: Protein Supplementation Comments: 1) Add cardiac restriction to current diet order 2) Rigo NOT recommended d/t patient's CKD 3) Initiate Ensure enlive bid d/t poor PO intake 3) Continue to monitor appetite, labs, and skin integrity Expected Outcomes/Goals: 1) appetite and labs to improve 2) wound to improve 3) f/u in 3-5 days Plan discussed with: Patient, Other Total Time (mins): 35 ZEENAT MCKEON MD Aug 15, 2024 19:28
[2024-08-15] MEDS: PREGABALIN 25 MG CAP PO SCH (22:20)
[2024-08-16] VITALS (7 sets, daily range): BP systolic 127–143; BP diastolic 64–86; PULSE 70–112; RESP 17–18; TEMP 97.8–98.2; O2SAT 95–99
[2024-08-16] MEDS ORDERED: POTASSIUM CHL 20MEQ/100ML 100 ML IV ONE (01:30)
[2024-08-16] MEDS: POTASSIUM CHL 20 Meq TABLET PO ONE (02:46)
[2024-08-16] MEDS ORDERED: GABAPENTIN 300 MG CAP PO ONE (03:45)
[2024-08-16] MEDS: LORazepam 2MG/ML-1ML VIAL IV ONE (05:04)
[2024-08-16] MEDS ORDERED: GABAPENTIN 300 MG CAP PO SCH (10:00)
[2024-08-16] MEDS: DIGOXIN 0.125 MG TAB PO SCH (10:01)
--- NOTE | 2024-08-16 10:12 | DVH ---
CT CT AB PEL WO CON-NO ORAL OR IV INDICATION: abdominal pain EXAM DATE: 08/16/2024 09:37 AM COMPARISON: None RADIATION DOSE: CTDIvol: 22.88 mGy, DLP: 1419.62 mGy*cm PROCEDURE: Helical CT images were obtained of the abdomen and pelvis without IV contrast Sagittal an d coronal reconstructions are provided. ORAL CONTRAST: None. ADDITIONAL IMAGES / REFORMATS: None All CT scans at this medical facility are performed using dose modulation techniques as appropriate t o a performed exam including the following: Automated exposure control was utilized; adjustment of th e MA and/or KV according to patient size; and use of iterative reconstruction technique. FINDINGS: LUNG BASE: Normal. LIVER: Normal. GALLBLADDER AND BILIARY TREE: Cholecystectomy clips are seen. No intra- or extrahepatic biliary ducta l dilation. PANCREAS: Normal. SPLEEN: Normal. BOWEL: Moderate to severe colonic diverticulosis. Normal appendix. ADRENALS: Normal. KIDNEYS AND URETER: Multiple pericentimeter renal cystic lesions are noted. BLADDER: Normal. REPRODUCTIVE ORGANS: Normal. LYMPH NODES:No lymphadenopathy. PERITONEUM: No ascites or free air. No other fluid collection. VESSELS: Scattered atherosclerotic calcifications are noted. RETROPERITONEUM: Normal. ABDOMINAL WALL: Normal. BONES: Scattered osseous degenerative changes are noted. Bilateral hip hardware appears intact. Lumba r spinal hardware appears intact. Laminectomy changes are noted. IMPRESSION: No acute intraabdominal abnormality. Moderate to severe colonic diverticulosis.
[2024-08-16 11:11] LABS: Free T4 (Free Thyroxine) 1.21 ng/dL (0.89-1.76)
--- NOTE | 2024-08-16 11:26 | DVHINCON2 ---
Date Seen: Aug 16, 2024 Reason for Consultation Left heel wound History of Present Illness 73-year-old male with PMHx CVA presents with a chief complaint of ALOC x 4 days. Patients is present and reports that patient has been increasingly agitated and more altered than is typical for his baseline. Patient is elderly aphasic at this time, is able to speak in clear sentences; no facial drooping or slurred speech noted at this time. Patient was reluctant to come into the ER earlier in the week when symptoms began. Patients mentions that patient has had a "mil d stroke" in the past. Patient blood sugar at time of triage was 93. No other symptoms or modifying factors present at this time. Patient otherwise complains of generalized body aches and hip discomfort and appears restless. Patient denies any chest pain or shortness for breath. Says he does not feel well and weak. Denies any fevers chills or sweats. Other review of systems reviewed. Given his confusion with restlessness with prior history of stroke is felt patient need to have further evaluation including stroke workup. Meantime in the ER patient also noted to have mildly elevated lactic acid suggestive of possible underlying infection could be contributing to his confusion. Therefore he is being admitted for further workup and management. Past Medical History See H&P Past Surgical History See H&P Family History: FH: diabetes mellitus G8 SISTER FH: leukemia G8 BROTHER Allergies: Coded Allergies: NO KNOWN ALLERGIES (Unverified , 03/30/24) Home Meds Active Scripts Pantoprazole Sodium Sesquihydr (Protonix) 40 Mg Tab, 40 MG PO DAILY for 7 Days, #7 TAB Prov:YOLY SHEEHAN MD 06/27/24 Finasteride (Finasteride) 5 Mg Tab, 1 TAB PO DAILY, #30 TAB Prov:JELENA JONES MD 04/07/24 Senna (Senokot) 8.6 Mg Tab, 1 TAB PO DAILY, #14 TAB Prov:JELENA JONES MD 04/07/24 Hydrocodone-Acetaminophen (Hydrocodone Bitartrate/AC 5-325 mg) 1 Tab Tab, 5 TAB PO Q6HPRN PRN for PAIN SCALE 7 THRU 10, #14 TAB Prov:JELENA JONES MD 04/07/24 Allopurinol (Allopurinol) 100 Mg Tab, 1 TAB PO DAILY for 19 Days Prov:JELENA JONES MD 04/07/24 Tamsulosin Hcl (Tamsulosin Hcl) 0.4 Mg Cap, 2 CAP PO HS, #30 CAP Prov:JELENA JONES MD 04/07/24 Reported Medications Atorvastatin Calcium (Lipitor) 10 Mg Tab, 1 TAB PO QPM, #90 TAB 1 Refill 08/13/24 Furosemide (Furosemide) 40 Mg Tab, 40 MG PO DAILY for 30 Days 08/13/24 Rivaroxaban (Xarelto Tablet) 15 Mg Tb, 15 MG PO DAILY, TAB 08/13/24 Digoxin (Digoxin) 125 Mcg Tab, 125 MCG PO DAILY, TAB 08/13/24 Gabapentin (Gabapentin) 300 Mg Cap, 1 CAP PO BID 03/30/24 Metoprolol Tartrate (Metoprolol Tartrate) 100 Mg Tab, 1 TAB PO BID 03/30/24 Calcitriol (Calcitriol) 0.25 Mcg Cap, 1 CAP PO DAILY 03/30/24 Current Medications Current Medications Medications (Trade) Dose Ordered Sig/Iron Route PRN Reason Start Time Stop Time Status Last Admin Enteral Nutritional Formula (Ensure Enlive) 240 ml BIDWM PO 08/15/24 18:00 08/16/24 08:07 Digoxin (Lanoxin Tablet) 0.125 mg DAILY PO 08/16/24 10:00 08/16/24 10:01 Rivaroxaban (Xarelto Tablet) 15 mg QPM PO 08/15/24 18:00 08/15/24 18:36 Pregabalin (Lyrica Capsule) 50 mg BID PO 08/15/24 22:00 08/16/24 10:02 Gabapentin (Neurontin Capsule) 300 mg BID PO 08/16/24 10:00 08/16/24 03:58 DC Vital Signs Vital Signs Date Time Temp Pulse Resp B/P (MAP) Pulse Ox O2 Delivery O2 Flow Rate FiO2 08/16/24 10:02 98 138/85 08/16/24 08:00 17 95 Room Air* 0 21 08/16/24 03:52 97.8 97.8 Physical Exam DERMATOLOGIC EXAM: - Skin is dry and cool to the touch dry bilaterally. - Nails 1-5 of the bilateral foot are thickened, discolored, dystrophic, and tender to palpate with subungual debris - Hair loss noted to bilateral feet Wound #1: Location: Left heel Measurements: Length 1 cm x width1 cm x depth 0.5cm. Wound margins: Hyperkeratotic. Wound base: Full thickness. General Appearance: Healthy and bleeding. Probes to Bone: No Purulent drainage: No Serous drainage: No Erythema: Absent VASCULAR EXAM: - DP and PT pulses are palpable bilaterally. - CITY MAGISTRATE is brisk to all digits. - Feet are cool to touch compared to lower legs bilaterally. NEUROLOGIC EXAM: - Normal light touch sensation to the superficial peroneal, deep peroneal, sural, saphenous, and tibial nerve branches. - Protective sensation is diminished as tested with a 5.07 10g [place] bilaterally. MUSCULOSKELETAL EXAM: - No gross deformities - Muscle strength is 5/5 and active motion is pain-free and symmetrical bilaterally - No pain or crepitation with passive range of motion bilaterally to all major pedal joints Labs/Diagnostic Data Labs Test 08/16/24 04:37 08/15/24 07:19 08/14/24 15:43 08/14/24 06:33 Range/Units Potassium Level 3.3 L 3.5-5.1 mmol/L Digoxin Level < 0.14 L 0.8-2 ng/mL White Blood Count 8.1 4.4-10.8 10^3/uL Red Blood Count 3.62 L 4.5-5.90 10^6/uL Hemoglobin 10.6 L 13.5-17.5 g/dL Hematocrit 31.8 L 41.0-53.0 % Mean Corpuscular Volume 88.0 80.0-100.0 fL Mean Corpuscular Hemoglobin 29.4 28.0-32.0 pg Mean Corpuscular Hemoglobin Concent 33.4 32.0-36.0 g/dL Red Cell Distribution Width 15.1 H 11.8-14.3 % Platelet Count 215 140-450 10^3/uL Mean Platelet Volume 7.4 6.9-10.8 fL Neutrophils (%) (Auto) 78.3 37.0-80.0 % Lymphocytes (%) (Auto) 10.2 10.0-50.0 % Monocytes (%) (Auto) 10.8 0.0-12.0 % Eosinophils (%) (Auto) 0.4 0.0-7.0 % Basophils (%) (Auto) 0.3 0.0-2.0 % Neutrophils # (Auto) 6.3 1.6-8.6 10 ^3/uL Lymphocytes # (Auto) 0.8 0.4-5.4 10 ^3/uL Monocytes # (Auto) 0.9 0-1.3 10 ^3/uL Eosinophils # (Auto) 0 0-0.8 10 ^3/uL Basophils # (Auto) 0 0-0.2 10 ^3/uL Nucleated Red Blood Cells 0.1 % Sodium Level 142 136-145 mmol/L Chloride Level 110 H 98-107 mmol/L Carbon Dioxide Level 22 20-31 mmol/L Anion Gap 10 5-15 Blood Urea Nitrogen 22 9-23 mg/dL Creatinine 1.41 H 0.700-1.30 mg/dL Glomerular Filtration Rate Calc 52 >90 mL/min BUN/Creatinine Ratio 15.6 10.0-20.0 Serum Glucose 110 H 74-106 mg/dL Lactic Acid Level 0.9 0.4-2.0 mmol/L Calcium Level 9.2 8.7-10.4 mg/dL Ammonia < 10 L 11-32 umol/L Carcinoembryonic Antigen 1.91 <=5.0 ng/mL Folic Acid 11.86 >5.38 ng/mL Vitamin D 25-Hydroxy 61.0 30.0-100 ng/mL Thyroid Stimulating Hormone (TSH) 1.21 0.55-4.78 uIU/mL Free Thyroxine (T4) Calculated 1.21 0.89-1.76 ng/dL Test 08/13/24 06:40 08/13/24 06:39 08/13/24 06:21 Range/Units Prothrombin Time 14.0 H 9.3-11.8 sec Prothrombin Time INR 1.36 H 0.9-1.15 Activated Partial Thromboplast Time 42.1 H 24.5-34.5 SEC D-Dimer, Quantitative 0.85 H 0.0-0.49 mg/L FEU Total Bilirubin 0.9 0.2-1.0 mg/dL Aspartate Amino Transferase (AST) 36 13-40 U/L Alanine Aminotransferase (ALT) 18 7-40 U/L Alkaline Phosphatase 101 46-116 U/L Troponin I High Sensitivity 13 </=54 ng/L Total Protein 7.8 5.7-8.2 g/dL Albumin 4.2 3.2-4.8 g/dL Plasma/Serum Blood Alcohol < 3.0 <10 mg/dL Urine Color Yellow Yellow Urine Clarity Clear Clear Urine pH 5.5 5.0-9.0 Urine Specific [place] 1.016 1.001-1.035 Urine Protein Negative Negative Urine Ketones Negative Negative Urine Blood Negative Negative /uL Urine Nitrite Negative Negative Urine Bilirubin Negative Negative Urine Urobilinogen Normal Negative mg/dL Urine Leukocyte Esterase Negative Negative /uL Urine RBC <1 0 - 3 /hpf Urine Microscopic WBC 1 0-3 /HPF Urine Squamous Epithelial Cells Few <5 /hpf Urine Bacteria None seen None Seen /hpf Urine Hyaline Casts Few 0 - 2 /lpf Urine Glucose Normal Normal mg/dL Urine Opiates Screen Pos NEGATIVE Urine Fentanyl Screen Neg NEGATIVE Urine Barbiturates Screen Neg NEGATIVE Urine Phencyclidine Screen Neg NEGATIVE Urine Amphetamines Screen Neg NEGATIVE Urine Benzodiazepines Screen Neg NEGATIVE Urine Cocaine Screen Neg NEGATIVE Urine Cannabinoids Screen Pos NEGATIVE POC Glucose 93 70-106 mg/dl Microbiology Date/Time Source Procedure Growth Status 08/13/24 06:40 Blood Blood Culture - Preliminary NO GROWTH AFTER 72 HOURS OF INCUBATION. Resulted 08/13/24 06:39 Voided Urine Urine Culture - Final Complete Problems(with codes): (1) Hematoma of right iliopsoas muscle (2) Lumbar stenosis with neurogenic claudication (3) Muscle spasm of back (4) Postoperative pain after spinal surgery (5) Anomic aphasia (6) Back pain (7) Encephalopathy, metabolic (8) Gastritis (9) Pressure ulcer, heel Plan/Recommendation ASSESSMENT: Patient is a 73 year old seen on the floor for a worsening ulcer PLAN: - The patients chart was reviewed, clinical findings were discussed with the patient, the etiologies of the conditions were discussed in detail, and a treatment plan was agreed to at this time, with both oral and written instructions provided. - reviewed advanced imaging - discussed that the wound appears to be healing appropriately - patient follows up with his crisis therapist for wound care - continue to keep it dress with Medihoney gauze Kerlix - no need for further imaging - no need for surgical intervention All questions were answered and concerns addressed to the patient's satisfaction. The patient was given the phone number to the clinic and was told how to make contact with the clinic should any concerns or questions arise. Patient understands that if any questions or concerns arise prior to the next appointment, we should be contacted immediately. FOLLOW-UP: Continue to follow while inpatient Plan discussed with: Patient Date of Service: Aug 16, 2024 Billing Provider: LUIS CARLOS LEA DPM Common Visit Codes: CONSULT ONLY Consultation Codes: [id number] CONSULT <80MIN LUIS CARLOS LEA DPM Aug 16, 2024 11:26
--- NOTE | 2024-08-16 13:17 | DVH ---
PROCEDURE: MRI MRA ANGIO OF NECK INDICATION: CVA Exam Date: 08/16/2024 12:42 PM COMPARISON: None TECHNIQUE: MRA neck without and with intravenous contrast. 3D image postprocessing was performed on a dedicated workstation and images were used for interpretat ion and reporting. FINDINGS: MRA neck: There is no evidence of hemodynamically significant stenosis involving the bilateral common and inte rnal carotid arteries. Right vertebral artery is diminutive throughout its course. Left vertebral a rtery is dominant. IMPRESSION: 1. No evidence of hemodynamically significant carotid stenosis or dissection. Diminutive right verteb ral artery. This can be further evaluated with CTA of the neck. No arteriovenous malformation identif ied. HS:Y
--- NOTE | 2024-08-16 13:37 | DVH ---
PROCEDURE: MRI MRA ANGIO HEAD BRAIN INDICATION: CVA 08/16/2024 12:56 PM COMPARISON: None TECHNIQUE: MRA head without intravenous contrast. 3D image postprocessing was performed on a dedicated workstation and images were used for interpretat ion and reporting. FINDINGS: MRA head: There is flow seen in the distal internal carotid arteries. There is diminished flow in the anterior cerebral arteries, more so on the right A1 segment seen in both M1 segments of the middle cerebral ar teries in the M2 segment of the right middle cerebral artery. Diminished flow in the M2 branches of t he left middle cerebral artery. Flow seen in the basilar artery. Flow seen in both posterior cerebral arteries, greater on the left in the right IMPRESSION: 1. There is normal flow seen through both A2 branches, through the A1 segment of the left anterior ce rebral artery and through both M1 segments of the middle cerebral arteries. Reduced flow in the M2 se gment branches of the left middle cerebral artery. Reduced flow seen in both posteriorcerebral branch es somewhat reduced on the right. Findings suggest narrowing however because of suboptimal technique follow-up with IV contrast is rec ommended to determine whether this is due to atherosclerosis or vasculitis
--- NOTE | 2024-08-16 15:18 | ECG ---
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
--- NOTE | 2024-08-16 16:24 | DVHPN2 ---
Progress Note Date Seen: Aug 16, 2024 Resident Creating Document: CARLA BYERS RESIDENT Medical Necessity Reason Pt with a Central, PICC or Fol: No Subjective Review of Systems Patient is 73-year-old male with past medical history of urinary retention, atrial fibrillation on Xarelto, CHF, CKD, hypertension, DJD of lumbar, BPH who brought to the hospital by for altered level of consciousness for past four days. At the time of evaluation patient was alert oriented to time place and person he was able to answer all the questions. He was not aware why he was brought to the hospital however as per patient his thought he is in bad shape. Patient is complaining of mild lower abdominal discomfort for the past two weeks, he did not had any bowel movements in last one week, as per patient his having issue with constipation for long time. Patient also had severe BPH and he was treated with tamsulosin and finasteride. Patient also complaining of significant weight loss of 40-50 lb in last two months, given patient's poor historian, not able to provide proper history given his age he does not feel anything wrong. GI has been consulted for further evaluation weight loss and abdominal discomfort. PMH:urinary retention, atrial fibrillation on Xarelto, CHF, CKD, hypertension, DJD of lumbar, BPH Past surgical history: Lumbar surgery, no endoscopy or colonoscopy. Allergy none Social history: Patient lives with , no history of alcohol or cigarette smoking.. No new complains. Objective vital signs Vital Sign Date Time Temp Pulse Resp B/P (MAP) Pulse Ox O2 Delivery O2 Flow Rate FiO2 08/16/24 13:00 98.0 70 17 143/82 (102) 99 98.0 08/16/24 08:00 Room Air* 0 21 Total Intake and Output 08/15/24 08/15/24 08/16/24 15:00 23:00 07:00 Intake Total 100 ml 600 ml 900 ml Output Total 400 ml 1075 ml Balance 100 ml 200 ml -175 ml medications Current Medications Medications Dose Ordered Sig/Iron Route Start Time Stop Time Status Last Admin Dose Admin Allopurinol 100 mg DAILY PO 08/14/24 10:00 08/16/24 10:01 100 MG Calcitriol 0.25 mcg DAILY PO 08/14/24 10:00 08/16/24 10:01 0.25 MCG Finasteride 5 mg DAILY PO 08/14/24 10:00 08/16/24 10:01 5 MG Acetaminophen/ Hydrocodone Bitart 5 tab Q6HPRN PRN PO 08/13/24 13:30 Cancel Pantoprazole Sodium 40 mg DAILY PO 08/14/24 10:00 08/16/24 10:01 40 MG Sennosides 8.6 mg DAILY PO 08/14/24 10:00 08/16/24 10:01 8.6 MG Tamsulosin HCl 0.4 mg HS PO 08/13/24 22:00 08/15/24 22:20 0.4 MG Metoprolol Tartrate 100 mg BID PO 08/13/24 22:00 08/16/24 10:02 100 MG Nitroglycerin 0.4 mg Q5MINP PRN SL 08/13/24 13:45 Morphine Sulfate 2 mg Q30M PRN IV 08/13/24 13:45 Ondansetron HCl 4 mg Q4HPRN PRN IV 08/13/24 13:45 Acetaminophen 650 mg Q6HP PRN PO 08/13/24 13:45 Acetaminophen/ Hydrocodone Bitart 1 tab Q4HPRN PRN PO 08/13/24 15:15 08/16/24 13:46 1 TAB Piperacillin Sod/ Tazobactam Sod 100 ml @ 25 mls/hr Q8H IV 08/14/24 02:15 08/16/24 10:03 25 MLS/HR Haloperidol Lactate 2 mg Q6HPRN PRN IM 08/14/24 11:00 Sodium Chloride 1,000 ml @ 75 mls/hr [id number] IV 08/14/24 11:30 08/16/24 15:47 75 MLS/HR Metoprolol Tartrate 1.25 mg Q6HPRN PRN IV 08/14/24 11:30 Lorazepam 1 mg ONCE PRN IV 08/14/24 22:15 Enteral Nutritional Formula 240 ml BIDWM PO 08/15/24 18:00 08/16/24 08:07 240 ML Digoxin 0.125 mg DAILY PO 08/16/24 10:00 08/16/24 10:01 0.125 MG Rivaroxaban 15 mg QPM PO 08/15/24 18:00 08/15/24 18:36 15 MG Pregabalin 50 mg BID PO 08/15/24 22:00 08/16/24 10:02 50 MG Examination General Appearance: Cooperative. Well developed. Well nourished. NAD Head Exam: Normal inspection Neck Exam: Normal inspection. Non-tender. Normal alignment Pulmonary/Respiratory: Chest non-tender. Clear bilateral breath sounds Cardiovascular/Chest: Regular rate and rhythm. No murmurs. No JVD. Peripheral Pulses: 2+ Radial (R). 2+ Radial (L). 2+ Pedal (R). 2+ Pedal (L) Abdominal Exam: Normal bowel sounds. Soft. Nontender. No hepatospenomegaly. No masses Ankle Exam: Negative ankle edema Lower extremities: Negative lower extremity edema Neuro/Mental Status: A&O x4. Coherent Thoughts/Psych: Normal thought pattern. Appropriate mood and affect. Good judgement and insight Appearance: In no acute distress Skin Exam: Normal inspection. Normal color. Warm. Dry laboratory and microbiology Laboratory Tests 08/16/24 04:37 08/15/24 07:19 Test 08/15/24 07:19 Range/Units Serum Glucose 110 H 74-106 mg/dL Microbiology Date/Time Source Procedure Growth Status 08/13/24 06:40 Blood Blood Culture - Preliminary NO GROWTH AFTER 72 HOURS OF INCUBATION. Resulted 08/13/24 06:39 Voided Urine Urine Culture - Final Complete Problem List/Assessment/Plan Problem List/Assessment/Plan Abdominal pain ? Rule out malignancy, ? due to constipation, ? due to urinary retention, ? functional. Weight loss ? Rule out malignancy, poor oral intake with malnutrition, underlying dementia or psychiatric issue, malabsorption Metabolic encephalopathy Chronic back pain ? Acute urinary retention BPH CHF Chronic AFib on anticoagulation Xarelto Presence of pacemaker Hypotension Plan/recommendation Dr. Gant -abdominal pain likely related to severe constipation given no bowel movement in seven days, related to urinary retention given underlying BPH, possible malignancy can not be ruled out as well given significant weight loss. -CT abdomen and pelvis:No acute intraabdominal abnormality. Moderate to severe colonic diverticulosis. -stool occult study pending -underlying poor intake/age-related depression can not be ruled out. -patient can follow up in outpatient setting for routine colonoscopy. -PUD prophylaxis -counseled on appropriate nutrition and protein intake. -no active GI intervention needed at this point. -we will continue following up with the patient. Plan discussed with: Patient, Other (RN) Dietary Evaluation Review Recommendations by RD: Protein Supplementation Comments: 1) Add cardiac restriction to current diet order 2) Rigo NOT recommended d/t patient's CKD 3) Initiate Ensure enlive bid d/t poor PO intake 3) Continue to monitor appetite, labs, and skin integrity Expected Outcomes/Goals: 1) appetite and labs to improve 2) wound to improve 3) f/u in 3-5 days CARLA BYERS RESIDENT Aug 16, 2024 16:24
--- NOTE | 2024-08-16 16:54 | DVHPN2 ---
Progress Note - Dictate Date Seen: Aug 16, 2024 Medical Necessity Reason Pt with a Central, PICC or Fol: No Subjective Patient is undergoing MRI and MRA of the brain. Physical therapy is evaluating him. Speech she is normal. Still has intermittent confusion. vital signs Vital Sign Date Time Temp Pulse Resp B/P (MAP) Pulse Ox O2 Delivery O2 Flow Rate FiO2 08/16/24 13:00 98.0 70 17 143/82 (102) 99 98.0 08/16/24 08:00 Room Air* 0 21 Total Intake and Output 08/15/24 08/15/24 08/16/24 15:00 23:00 07:00 Intake Total 100 ml 600 ml 900 ml Output Total 400 ml 1075 ml Balance 100 ml 200 ml -175 ml medications Current Medications Medications Dose Ordered Sig/Iron Route Start Time Stop Time Status Last Admin Dose Admin Allopurinol 100 mg DAILY PO 08/14/24 10:00 08/16/24 10:01 100 MG Calcitriol 0.25 mcg DAILY PO 08/14/24 10:00 08/16/24 10:01 0.25 MCG Finasteride 5 mg DAILY PO 08/14/24 10:00 08/16/24 10:01 5 MG Acetaminophen/ Hydrocodone Bitart 5 tab Q6HPRN PRN PO 08/13/24 13:30 Cancel Pantoprazole Sodium 40 mg DAILY PO 08/14/24 10:00 08/16/24 10:01 40 MG Sennosides 8.6 mg DAILY PO 08/14/24 10:00 08/16/24 10:01 8.6 MG Tamsulosin HCl 0.4 mg HS PO 08/13/24 22:00 08/15/24 22:20 0.4 MG Metoprolol Tartrate 100 mg BID PO 08/13/24 22:00 08/16/24 10:02 100 MG Nitroglycerin 0.4 mg Q5MINP PRN SL 08/13/24 13:45 Morphine Sulfate 2 mg Q30M PRN IV 08/13/24 13:45 Ondansetron HCl 4 mg Q4HPRN PRN IV 08/13/24 13:45 Acetaminophen 650 mg Q6HP PRN PO 08/13/24 13:45 Acetaminophen/ Hydrocodone Bitart 1 tab Q4HPRN PRN PO 08/13/24 15:15 08/16/24 13:46 1 TAB Piperacillin Sod/ Tazobactam Sod 100 ml @ 25 mls/hr Q8H IV 08/14/24 02:15 08/16/24 10:03 25 MLS/HR Haloperidol Lactate 2 mg Q6HPRN PRN IM 08/14/24 11:00 Sodium Chloride 1,000 ml @ 75 mls/hr [id number] IV 08/14/24 11:30 08/16/24 15:47 75 MLS/HR Metoprolol Tartrate 1.25 mg Q6HPRN PRN IV 08/14/24 11:30 Lorazepam 1 mg ONCE PRN IV 08/14/24 22:15 Enteral Nutritional Formula 240 ml BIDWM PO 08/15/24 18:00 08/16/24 08:07 240 ML Digoxin 0.125 mg DAILY PO 08/16/24 10:00 08/16/24 10:01 0.125 MG Rivaroxaban 15 mg QPM PO 08/15/24 18:00 08/15/24 18:36 15 MG Pregabalin 50 mg BID PO 08/15/24 22:00 08/16/24 10:02 50 MG objective HEENT pupils equal round react to light. Oropharynx clear with a poor dentition. Neck supple. Heart regular rate and rhythm S1-S2. Lungs fair air movement without any audible wheezing or rales. Abdomen soft nontender positive bowel sounds. Extremities no edema positive pulses. Extremities positive distal pedal pulses. No gross weakness or deficits noted. laboratory and microbiology Laboratory Tests 08/16/24 04:37 08/15/24 07:19 Test 08/15/24 07:19 Range/Units Serum Glucose 110 H 74-106 mg/dL Assessment/Plan CT of the abdomen and pelvis is normal without any evidence of malignancy for unexplained weight loss. Follow the MRA MRI results. Continue physical therapy. We will arrange for home safety eval and home health. If he remains stable and workup is normal consider discharge home tomorrow. Discussed with the nurse Dietary Evaluation Review Recommendations by RD: Protein Supplementation Comments: 1) Add cardiac restriction to current diet order 2) Rigo NOT recommended d/t patient's CKD 3) Initiate Ensure enlive bid d/t poor PO intake 3) Continue to monitor appetite, labs, and skin integrity Expected Outcomes/Goals: 1) appetite and labs to improve 2) wound to improve 3) f/u in 3-5 days Plan discussed with: Other JELENA JONES MD Aug 16, 2024 16:54
[2024-08-16] MEDS ORDERED: MELATONIN 5 MG TAB PO PRN (22:45)
--- NOTE | 2024-08-16 23:12 | DVHPN2 ---
Progress Note - Dictate Date Seen: Aug 16, 2024 Medical Necessity Reason Pt with a Central, PICC or Fol: No Subjective Mr. Sequeira is a 73 years old right-handed gentleman with a history of hypertension, atrial fibrillation on Xarelto, congestive heart failure, chronic kidney failure, chronic low back pain, degenerative disc disease, the patient was brought to the hospital on 08/13/2024 with a chief company of altered mental status, restless less at home. I have seen and examined the patient, I discussed with his nurse and sitter, he is much better today, alert oriented x3, he reports no new problems The burning pain in the feet/legs has improvement a lot After MR eight to the brain, head, when he was about to have MRI head, he become agitated, noncooperative. I have talked to him, he agreed to have this test done tomorrow, and he was try his best to cooperate with us, he wants the medication to calm him down during the test GI input appreciated Urinalysis, 08/14/2024: WBC: 1, urine leukocyte esterase: Negative UDS, 08/13/2024: Cannabinoids WBC/HB/PLT/MCV, 08/14/2024: 8.4/11.4/250/88.3 PT/INR/PTT, 08/13/2024: 14/1.36/42.1 BUN/CR, 08/14/2024: 23/1.52 HCO3, 08/14/2024: 19 Liver function tests, 08/13/2024: Unremarkable Vitamin B12, 08/14/2024: 564 Folic acid, 07/2024: 11.86 TSH, 08/14/2024: 1.2 Chest x-ray, 08/13/2024: No evidence of acute intracranial abnormality. CT head, 08/13/2024: No evidence of acute intracranial abnormality MRA head : There is normal flow seen through both A2 branches, through the A1 segment of the left anterior cerebral artery and through both M1 segments of the middle cerebral arteries. Reduced flow in the M2 segment branches of the left middle cerebral artery. Reduced flow seen in both posteriorcerebral branches somewhat reduced on the right Findings suggest narrowing however because of suboptimal technique follow-up with IV contrast is recommended to determine whether this is due to atherosclerosis or vasculitis MRI neck, 08/16/2024: No evidence of hemodynamically significant carotid stenosis or dissection. Diminutive right vertebral artery. This can be further evaluated with CTA of the neck. No arteriovenous malformation identified vital signs Vital Sign Date Time Temp Pulse Resp B/P (MAP) Pulse Ox O2 Delivery O2 Flow Rate FiO2 08/16/24 21:24 93 138/86 08/16/24 21:00 98.0 18 96 98.0 08/16/24 20:00 Room Air* 0 21 Total Intake and Output 08/15/24 08/15/24 08/16/24 15:00 23:00 07:00 Intake Total 100 ml 600 ml 900 ml Output Total 400 ml 1075 ml Balance 100 ml 200 ml -175 ml medications Current Medications Medications Dose Ordered Sig/Iron Route Start Time Stop Time Status Last Admin Dose Admin Allopurinol 100 mg DAILY PO 08/14/24 10:00 08/16/24 10:01 100 MG Calcitriol 0.25 mcg DAILY PO 08/14/24 10:00 08/16/24 10:01 0.25 MCG Finasteride 5 mg DAILY PO 08/14/24 10:00 08/16/24 10:01 5 MG Acetaminophen/ Hydrocodone Bitart 5 tab Q6HPRN PRN PO 08/13/24 13:30 Cancel Pantoprazole Sodium 40 mg DAILY PO 08/14/24 10:00 08/16/24 10:01 40 MG Sennosides 8.6 mg DAILY PO 08/14/24 10:00 08/16/24 10:01 8.6 MG Tamsulosin HCl 0.4 mg HS PO 08/13/24 22:00 08/16/24 21:23 0.4 MG Metoprolol Tartrate 100 mg BID PO 08/13/24 22:00 08/16/24 21:24 100 MG Nitroglycerin 0.4 mg Q5MINP PRN SL 08/13/24 13:45 Morphine Sulfate 2 mg Q30M PRN IV 08/13/24 13:45 Ondansetron HCl 4 mg Q4HPRN PRN IV 08/13/24 13:45 Acetaminophen 650 mg Q6HP PRN PO 08/13/24 13:45 Acetaminophen/ Hydrocodone Bitart 1 tab Q4HPRN PRN PO 08/13/24 15:15 08/16/24 22:13 1 TAB Piperacillin Sod/ Tazobactam Sod 100 ml @ 25 mls/hr Q8H IV 08/14/24 02:15 08/16/24 17:34 25 MLS/HR Haloperidol Lactate 2 mg Q6HPRN PRN IM 08/14/24 11:00 Sodium Chloride 1,000 ml @ 75 mls/hr [id number] IV 08/14/24 11:30 08/16/24 15:47 75 MLS/HR Metoprolol Tartrate 1.25 mg Q6HPRN PRN IV 08/14/24 11:30 Lorazepam 1 mg ONCE PRN IV 08/14/24 22:15 Enteral Nutritional Formula 240 ml BIDWM PO 08/15/24 18:00 08/16/24 18:38 240 ML Digoxin 0.125 mg DAILY PO 08/16/24 10:00 08/16/24 10:01 0.125 MG Rivaroxaban 15 mg QPM PO 08/15/24 18:00 08/16/24 17:33 15 MG Pregabalin 50 mg BID PO 08/15/24 22:00 08/16/24 21:22 50 MG Melatonin 5 mg HSPRN PRN PO 08/16/24 22:45 objective General: the patient is well developed and nourished. No acute distress. MUSCULOSKELETAL EXAM: The skin of the legs and feet is red and thin, with healing lesions MENTAL STATUS: Awake and alert. Oriented to person, place, SPEECH, LANGUAGE, HIGHER CORTICAL FUNCTION: no aphasia or dysathria. CRANIAL NERVES: Intact visual medina to confrontation. Pupils are equal, round and reactive. EOMs full and conjugate. Mild bilateral gaze evoked nystagmus. Facial sensation intact in all three divisions bilaterally. Mandibular strength intact. Facial muscles symmetrical and strength intact. SENSATION: Sensation to touch and pinprick is okay MOTOR: Normal tone in the upper and lower extremity. Normal muscle bulk. No fasciculations. No abnormal movements or posturing. Muscle strength of the major groups in the upper extremities is 5/5. He moves both legs. REFLEXES: Deep tendon reflexes normal and symmetrical. No pathological reflexes. CEREBELLAR/COORDINATION: Deferred GAIT/STATION: deferred laboratory and microbiology Laboratory Tests 08/16/24 04:37 08/15/24 07:19 Test 08/15/24 07:19 Range/Units Serum Glucose 110 H 74-106 mg/dL Problem List Altered mental status Metabolic encephalopathy Rule out acute central nervous system etiology, ? Stroke, ? Partial complex seizure Metabolic acidosis Polyneuropathy Abdominal pain, weight loss, etiology unclear Fever, to rule out sepsis Assessment/Plan Monitoring Supportive treatment Telemetry SIFE Blood culture EEG MRI brain scan (not cooperative) IV antibiotics Lovenox 100 mg subQ b.i.d. Discontinue gabapentin Lyrica 50 mg b.i.d. Foot care Daily foot inspection GI on case Re: Abdominal discomfort, weight loss More recommendation per clinical course This medical document was created using an electronic medical record system with [employer] dictation system. Although this document has been carefully reviewed, there may still be some phonetic and typographical errors. These areas are purely typographical due to imperfections of the software programs, and do not reflect any compromise in the patient's medical care Prognosis poor Dietary Evaluation Review Recommendations by RD: Protein Supplementation Comments: 1) Add cardiac restriction to current diet order 2) Rigo NOT recommended d/t patient's CKD 3) Initiate Ensure enlive bid d/t poor PO intake 3) Continue to monitor appetite, labs, and skin integrity Expected Outcomes/Goals: 1) appetite and labs to improve 2) wound to improve 3) f/u in 3-5 days Plan discussed with: Patient, Other ZEENAT MCKEON MD Aug 16, 2024 23:12
[2024-08-16] MEDS ORDERED: LORazepam 2MG/ML-1ML VIAL IV PRN (23:45)
[2024-08-17 01:00] VITALS: BP 125/68; PULSE 82; RESP 20; TEMP 97.5; O2SAT 100
[2024-08-17 05:00] VITALS: BP 125/71; PULSE 90; RESP 19; TEMP 97.5; O2SAT 98
[2024-08-17 06:07] LABS: PSA Free 0.06 ng/mL; Prostate Specific Antigen 0.3 ng/mL (0.0-4.0)
[2024-08-17 08:00] VITALS: PULSE 100; RESP 18
[2024-08-17 08:07] LABS: RPR Non Reactive (Non Reactive)
[2024-08-17 08:07] LABS: Immunoglobulin A 291 mg/dL (61-437); Immunoglobulin G, Serum 1585 mg/dL (603-1613); Immunoglobulin M 66 mg/dL (15-143)
[2024-08-17 09:00] VITALS: BP 125/77; PULSE 91; RESP 16; TEMP 98.6; O2SAT 99
[2024-08-17] MEDS: ONDANSETRON HCL 4 MG/2 ML VIAL IV PRN (11:57)
[2024-08-17 12:32] VITALS: BP 110/68; PULSE 88; RESP 17; TEMP 98.9; O2SAT 98
--- NOTE | 2024-08-17 12:53 | ECG ---
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
--- NOTE | 2024-08-17 14:29 | DVHDS2 ---
Discharge Summary Date of Admission Aug 13, 2024 at 13:31 Date of Discharge: Aug 17, 2024 Labs/Diagnostic Data: Laboratory Results Test 08/17/24 11:04 08/16/24 04:37 08/15/24 07:19 08/14/24 15:43 Stool Occult Blood Negative (Negative) Stool Occult Blood Sample #3 (Negative) Potassium Level 3.3 mmol/L (3.5-5.1) Digoxin Level < 0.14 ng/mL (0.8-2) White Blood Count 8.1 10^3/uL (4.4-10.8) Red Blood Count 3.62 10^6/uL (4.5-5.90) Hemoglobin 10.6 g/dL (13.5-17.5) Hematocrit 31.8 % (41.0-53.0) Mean Corpuscular Volume 88.0 fL (80.0-100.0) Mean Corpuscular Hemoglobin 29.4 pg (28.0-32.0) Mean Corpuscular Hemoglobin Concent 33.4 g/dL (32.0-36.0) Red Cell Distribution Width 15.1 % (11.8-14.3) Platelet Count 215 10^3/uL (140-450) Mean Platelet Volume 7.4 fL (6.9-10.8) Neutrophils (%) (Auto) 78.3 % (37.0-80.0) Lymphocytes (%) (Auto) 10.2 % (10.0-50.0) Monocytes (%) (Auto) 10.8 % (0.0-12.0) Eosinophils (%) (Auto) 0.4 % (0.0-7.0) Basophils (%) (Auto) 0.3 % (0.0-2.0) Neutrophils # (Auto) 6.3 10 ^3/uL (1.6-8.6) Lymphocytes # (Auto) 0.8 10 ^3/uL (0.4-5.4) Monocytes # (Auto) 0.9 10 ^3/uL (0-1.3) Eosinophils # (Auto) 0 10 ^3/uL (0-0.8) Basophils # (Auto) 0 10 ^3/uL (0-0.2) Nucleated Red Blood Cells 0.1 % Serum Immunoglobulin G 1585 mg/dL (603-1613) Sodium Level 142 mmol/L (136-145) Chloride Level 110 mmol/L (98-107) Carbon Dioxide Level 22 mmol/L (20-31) Anion Gap 10 (5-15) Blood Urea Nitrogen 22 mg/dL (9-23) Creatinine 1.41 mg/dL (0.700-1.30) Glomerular Filtration Rate Calc 52 mL/min (>90) BUN/Creatinine Ratio 15.6 (10.0-20.0) Serum Glucose 110 mg/dL (74-106) Lactic Acid Level 0.9 mmol/L (0.4-2.0) Calcium Level 9.2 mg/dL (8.7-10.4) Ammonia < 10 umol/L (11-32) Carcinoembryonic Antigen 1.91 ng/mL (<=5.0) Free Prostate Specific Antigen 0.06 ng/mL (N/A) Percent Free Prostate Specific Ag 20.0 % (.) Prostate Specific Antigen Total 0.3 ng/mL (0.0-4.0) Folic Acid 11.86 ng/mL (>5.38) Immunoglobulin A 291 mg/dL (61-437) Immunoglobulin M 66 mg/dL (15-143) Serum Immunofixation Comment (.) Rapid Plasma Reagin Non reactive (Non Reactive) Test 08/14/24 06:33 08/13/24 06:40 08/13/24 06:39 08/13/24 06:21 Vitamin B12 Level 564 pg/mL (211-911) Vitamin D 25-Hydroxy 61.0 ng/mL (30.0-100) Thyroid Stimulating Hormone (TSH) 1.21 uIU/mL (0.55-4.78) Free Thyroxine (T4) Calculated 1.21 ng/dL (0.89-1.76) Prothrombin Time 14.0 sec (9.3-11.8) Prothrombin Time INR 1.36 (0.9-1.15) Activated Partial Thromboplast Time 42.1 SEC (24.5-34.5) D-Dimer, Quantitative 0.85 mg/L FEU (0.0-0.49) Total Bilirubin 0.9 mg/dL (0.2-1.0) Aspartate Amino Transferase (AST) 36 U/L (13-40) Alanine Aminotransferase (ALT) 18 U/L (7-40) Alkaline Phosphatase 101 U/L (46-116) Troponin I High Sensitivity 13 ng/L (</=54) Total Protein 7.8 g/dL (5.7-8.2) Albumin 4.2 g/dL (3.2-4.8) Plasma/Serum Blood Alcohol < 3.0 mg/dL (<10) Urine Color Yellow (Yellow) Urine Clarity Clear (Clear) Urine pH 5.5 (5.0-9.0) Urine Specific [place] 1.016 (1.001-1.035) Urine Protein Negative (Negative) Urine Ketones Negative (Negative) Urine Blood Negative /uL (Negative) Urine Nitrite Negative (Negative) Urine Bilirubin Negative (Negative) Urine Urobilinogen Normal mg/dL (Negative) Urine Leukocyte Esterase Negative /uL (Negative) Urine RBC <1 /hpf (0 - 3) Urine Microscopic WBC 1 /HPF (0-3) Urine Squamous Epithelial Cells Few /hpf (<5) Urine Bacteria None seen /hpf (None Seen) Urine Hyaline Casts Few /lpf (0 - 2) Urine Glucose Normal mg/dL (Normal) Urine Opiates Screen Pos (NEGATIVE) Urine Fentanyl Screen Neg (NEGATIVE) Urine Barbiturates Screen Neg (NEGATIVE) Urine Phencyclidine Screen Neg (NEGATIVE) Urine Amphetamines Screen Neg (NEGATIVE) Urine Benzodiazepines Screen Neg (NEGATIVE) Urine Cocaine Screen Neg (NEGATIVE) Urine Cannabinoids Screen Pos (NEGATIVE) POC Glucose 93 mg/dl (70-106) Other Laboratory Tests 08/16/24 04:37 08/15/24 07:19 Brief Hx & Hospital Course: 73-year-old male with PMHx CVA presents with a chief complaint of ALOC x 4 days. Patients is present and reports that patient has been increasingly agitated and more altered than is typical for his baseline. Patient is elderly aphasic at this time, is able to speak in clear sentences; no facial drooping or slurred speech noted at this time. Patient was reluctant to come into the ER earlier in the week when symptoms began. Patients mentions that patient has had a "mild stroke" in the past. Patient blood sugar at time of triage was 93. No other symptoms or modifying factors present at this time. Patient otherwise complains of generalized body aches and hip discomfort and appears restless. Patient denies any chest pain or shortness for breath. Says he does not feel well and weak. Denies any fevers chills or sweats. Other review of systems reviewed. Given his confusion with restlessness with prior history of stroke is felt patient need to have further evaluation including stroke workup. Meantime in the ER patient also noted to have mildly elevated lactic acid suggestive of possible underlying infection could be contributing to his confusion. Therefore he is being admitted for further workup and management. He is admitted and underwent neurology evaluation. MRI MRA of the brain did not show any acute pathology. [place] his confusion possibly related to medications. While in the hospitalist symptoms have improved and resolved. He is tolerating his diet. No dysphagia or speech problems identified. I have talked to him today as well as his over the phone regarding his hospital diagnosis, treatment he received, MRI findings, discharge medications, discharge instructions follow-up plan of care. Given overall patient is clinically stable it is felt he could be safely discharged home. They have verbalized understanding of the hospital course and agree with the discharge follow up care plan as outlined. Consults/Reason for consult Subjective Mr. Sequeira is a 73 years old right-handed gentleman with a history of hypertension, atrial fibrillation on Xarelto, congestive heart failure, chronic kidney failure, chronic low back pain, degenerative disc disease, the patient was brought to the hospital on 08/13/2024 with a chief company of altered mental status, restless less at home. I have seen and examined the patient, I discussed with his nurse and sitter, he is much better today, alert oriented x3, he reports no new problems The burning pain in the feet/legs has improvement a lot After MR eight to the brain, head, when he was about to have MRI head, he become agitated, noncooperative. I have talked to him, he agreed to have this test done tomorrow, and he was try his best to cooperate with us, he wants the medication to calm him down during the test GI input appreciated Urinalysis, 08/14/2024: WBC: 1, urine leukocyte esterase: Negative UDS, 08/13/2024: Cannabinoids WBC/HB/PLT/MCV, 08/14/2024: 8.4/11.4/250/88.3 PT/INR/PTT, 08/13/2024: 14/1.36/42.1 BUN/CR, 08/14/2024: 23/1.52 HCO3, 08/14/2024: 19 Liver function tests, 08/13/2024: Unremarkable Vitamin B12, 08/14/2024: 564 Folic acid, 07/2024: 11.86 TSH, 08/14/2024: 1.2 Chest x-ray, 08/13/2024: No evidence of acute intracranial abnormality. CT head, 08/13/2024: No evidence of acute intracranial abnormality MRA head : There is normal flow seen through both A2 branches, through the A1 segment of the left anterior cerebral artery and through both M1 segments of the middle cerebral arteries. Reduced flow in the M2 segment branches of the left middle cerebral artery. Reduced flow seen in both posteriorcerebral branches somewhat reduced on the right Findings suggest narrowing however because of suboptimal technique follow-up with IV contrast is recommended to determine whether this is due to atherosclerosis or vasculitis MRI neck, 08/16/2024: No evidence of hemodynamically significant carotid stenosis or dissection. Diminutive right vertebral artery. This can be further evaluated with CTA of the neck. No arteriovenous malformation identified Problem List Altered mental status Metabolic encephalopathy Rule out acute central nervous system etiology, ? Stroke, ? Partial complex seizure Metabolic acidosis Polyneuropathy Abdominal pain, weight loss, etiology unclear Fever, to rule out sepsis Assessment/Plan Monitoring Supportive treatment Telemetry SIFE Blood culture EEG MRI brain scan (not cooperative) IV antibiotics Lovenox 100 mg subQ b.i.d. Discontinue gabapentin Lyrica 50 mg b.i.d. Foot care Daily foot inspection GI on case Re: Abdominal discomfort, weight loss More recommendation per clinical course This medical document was created using an electronic medical record system with [employer] dictation system. Although this document has been carefully reviewed, there may still be some phonetic and typographical errors. These areas are purely typographical due to imperfections of the software programs, and do not reflect any compromise in the patient's medical care Prognosis ZEENAT Henderson MD Aug 16, 2024 23:12 Operations or Procedures PROCEDURE: MRI MRA ANGIO HEAD BRAIN INDICATION: CVA 08/16/2024 12:56 PM COMPARISON: None TECHNIQUE: MRA head without intravenous contrast. 3D image postprocessing was performed on a dedicated workstation and images were used for interpretation and reporting. FINDINGS: MRA head: There is flow seen in the distal internal carotid arteries. There is diminished flow in the anterior cerebral arteries, more so on the right A1 segment seen in both M1 segments of the middle cerebral arteries in the M2 segment of the right middle cerebral artery. Diminished flow in the M2 branches of the left middle cerebral artery. Flow seen in the basilar artery. Flow seen in both posterior cerebral arteries, greater on the left in the right IMPRESSION: 1. There is normal flow seen through both A2 branches, through the A1 segment of the left anterior cerebral artery and through both M1 segments of the middle cerebral arteries. Reduced flow in the M2 segment branches of the left middle cerebral artery. Reduced flow seen in both posteriorcerebral branches somewhat reduced on the right. Findings suggest narrowing however because of suboptimal technique follow-up with IV contrast is recommended to determine whether this is due to atherosclerosis or vasculitis ATED BY: LISA VELEZ MD DICTATED DATE/TIME: 08/16/24 [id number] Condition at Discharge: Stable Final Diagnosis/Problems List Metabolic encephalopathy resolved, chronic atrial fibrillation Discharge Disposition: Home Discharge Instruct/Medications Diet: Consistent carbohydrate, Cardiac 2g Na,low cholest Activity: No Restrictions, As Tolerated Follow Up/Referral: Dr. Keek Huynh neurologist after two weeks for confusion follow up evaluation. [facility] doctor for elective EGD for swallowing difficulties 3-4 weeks. Medications: To continue home medications Continued Medications: Allopurinol (Allopurinol) 100 Mg Tab 1 TAB PO DAILY for 19 Days Atorvastatin Calcium (Lipitor) 10 Mg Tab 1 TAB PO QPM, #90 TAB 1 Refill Calcitriol (Calcitriol) 0.25 Mcg Cap 1 CAP PO DAILY Digoxin (Digoxin) 125 Mcg Tab 125 MCG PO DAILY, TAB Finasteride (Finasteride) 5 Mg Tab 1 TAB PO DAILY, #30 TAB Furosemide (Furosemide) 40 Mg Tab 40 MG PO DAILY for 30 Days Gabapentin (Gabapentin) 300 Mg Cap 1 CAP PO BID Hydrocodone-Acetaminophen (Hydrocodone Bitartrate/AC 5-325 mg) 1 Tab Tab 5 TAB PO Q6HPRN PRN for PAIN SCALE 7 THRU 10, #14 TAB Metoprolol Tartrate (Metoprolol Tartrate) 100 Mg Tab 1 TAB PO BID Pantoprazole Sodium Sesquihydr (Protonix) 40 Mg Tab 40 MG PO DAILY for 7 Days, #7 TAB Rivaroxaban (Xarelto Tablet) 15 Mg Tb 15 MG PO DAILY, TAB Senna (Senokot) 8.6 Mg Tab 1 TAB PO DAILY, #14 TAB Tamsulosin Hcl (Tamsulosin Hcl) 0.4 Mg Cap 2 CAP PO HS, #30 CAP Discharge Statement: "Patient was advised to return to the ER or call 911 if any headaches, dizziness, shortness of breath, chest pain, abdominal pain, bleeding, fevers, or worsening of medical condition. Patient was counseled about treatment plan, medications, possible side effects, patientverbalized understanding. All questions were answered to the best of my ability. This discharge took greater then 30 minutes in planning, reviewing documentation, counseling the patient, and discussing with other team members." ASSESSMENT ASSESSMENT Assessment Metabolic encephalopathy resolved, chronic atrial fibrillation JELENA JONES MD Aug 17, 2024 14:29
--- NOTE | 2024-08-17 15:06 | DVHPN2 ---
Progress Note Date Seen: Aug 17, 2024 Resident Creating Document: CARLA BYERS RESIDENT Medical Necessity Reason Pt with a Central, PICC or Fol: No Subjective Review of Systems Patient is 73-year-old male with past medical history of urinary retention, atrial fibrillation on Xarelto, CHF, CKD, hypertension, DJD of lumbar, BPH who brought to the hospital by for altered level of consciousness for past four days. At the time of evaluation patient was alert oriented to time place and person he was able to answer all the questions. He was not aware why he was brought to the hospital however as per patient his thought he is in bad shape. Patient is complaining of mild lower abdominal discomfort for the past two weeks, he did not had any bowel movements in last one week, as per patient his having issue with constipation for long time. Patient also had severe BPH and he was treated with tamsulosin and finasteride. Patient also complaining of significant weight loss of 40-50 lb in last two months, given patient's poor historian, not able to provide proper history given his age he does not feel anything wrong. GI has been consulted for further evaluation weight loss and abdominal discomfort. PMH:urinary retention, atrial fibrillation on Xarelto, CHF, CKD, hypertension, DJD of lumbar, BPH Past surgical history: Lumbar surgery, no endoscopy or colonoscopy. Allergy none Social history: Patient lives with , no history of alcohol or cigarette smoking.. No new complains. Objective vital signs Vital Sign Date Time Temp Pulse Resp B/P (MAP) Pulse Ox O2 Delivery O2 Flow Rate FiO2 08/17/24 12:32 98.9 88 17 110/68 (82) 98 98.9 08/17/24 08:00 Room Air* 0 98 21 Total Intake and Output 08/16/24 08/16/24 08/17/24 15:00 23:00 07:00 Intake Total 100 ml 820 ml 1550 ml Output Total 600 ml 1500 ml Balance 100 ml 220 ml 50 ml medications Current Medications Medications Dose Ordered Sig/Iron Route Start Time Stop Time Status Last Admin Dose Admin Allopurinol 100 mg DAILY PO 08/14/24 10:00 08/17/24 10:39 100 MG Calcitriol 0.25 mcg DAILY PO 08/14/24 10:00 08/17/24 10:39 0.25 MCG Finasteride 5 mg DAILY PO 08/14/24 10:00 08/17/24 10:38 5 MG Acetaminophen/ Hydrocodone Bitart 5 tab Q6HPRN PRN PO 08/13/24 13:30 Cancel Pantoprazole Sodium 40 mg DAILY PO 08/14/24 10:00 08/17/24 10:39 40 MG Sennosides 8.6 mg DAILY PO 08/14/24 10:00 08/17/24 10:39 8.6 MG Tamsulosin HCl 0.4 mg HS PO 08/13/24 22:00 08/16/24 21:23 0.4 MG Metoprolol Tartrate 100 mg BID PO 08/13/24 22:00 08/17/24 10:40 100 MG Nitroglycerin 0.4 mg Q5MINP PRN SL 08/13/24 13:45 Morphine Sulfate 2 mg Q30M PRN IV 08/13/24 13:45 Ondansetron HCl 4 mg Q4HPRN PRN IV 08/13/24 13:45 08/17/24 11:57 4 MG Acetaminophen 650 mg Q6HP PRN PO 08/13/24 13:45 Acetaminophen/ Hydrocodone Bitart 1 tab Q4HPRN PRN PO 08/13/24 15:15 08/17/24 03:25 1 TAB Piperacillin Sod/ Tazobactam Sod 100 ml @ 25 mls/hr Q8H IV 08/14/24 02:15 08/17/24 10:40 25 MLS/HR Haloperidol Lactate 2 mg Q6HPRN PRN IM 08/14/24 11:00 Sodium Chloride 1,000 ml @ 75 mls/hr [id number] IV 08/14/24 11:30 08/17/24 00:15 75 MLS/HR Metoprolol Tartrate 1.25 mg Q6HPRN PRN IV 08/14/24 11:30 Lorazepam 1 mg ONCE PRN IV 08/14/24 22:15 Enteral Nutritional Formula 240 ml BIDWM PO 08/15/24 18:00 08/16/24 18:38 240 ML Digoxin 0.125 mg DAILY PO 08/16/24 10:00 08/17/24 10:39 0.125 MG Rivaroxaban 15 mg QPM PO 08/15/24 18:00 08/16/24 17:33 15 MG Pregabalin 50 mg BID PO 08/15/24 22:00 08/17/24 10:38 50 MG Melatonin 5 mg HSPRN PRN PO 08/16/24 22:45 Lorazepam 1 mg ONCE PRN IV 08/16/24 23:45 Examination General Appearance: Cooperative. Well developed. Well nourished. NAD Head Exam: Normal inspection Neck Exam: Normal inspection. Non-tender. Normal alignment Pulmonary/Respiratory: Chest non-tender. Clear bilateral breath sounds Cardiovascular/Chest: Regular rate and rhythm. No murmurs. No JVD. Peripheral Pulses: 2+ Radial (R). 2+ Radial (L). 2+ Pedal (R). 2+ Pedal (L) Abdominal Exam: Normal bowel sounds. Soft. Nontender. No hepatospenomegaly. No masses Ankle Exam: Negative ankle edema Lower extremities: Negative lower extremity edema Neuro/Mental Status: A&O x4. Coherent Thoughts/Psych: Normal thought pattern. Appropriate mood and affect. Good judgement and insight Appearance: In no acute distress Skin Exam: Normal inspection. Normal color. Warm. Dry laboratory and microbiology Laboratory Tests 08/16/24 04:37 08/15/24 07:19 Test 08/15/24 07:19 Range/Units Serum Glucose 110 H 74-106 mg/dL Microbiology Date/Time Source Procedure Growth Status 08/13/24 06:40 Blood Blood Culture - Preliminary NO GROWTH AFTER 72 HOURS OF INCUBATION. Resulted 08/13/24 06:39 Voided Urine Urine Culture - Final Complete Problem List/Assessment/Plan Problem List/Assessment/Plan Abdominal pain ? Rule out malignancy, ? due to constipation, ? due to urinary retention, ? functional. Weight loss ? Rule out malignancy, poor oral intake with malnutrition, underlying dementia or psychiatric issue, malabsorption Metabolic encephalopathy Chronic back pain ? Acute urinary retention BPH CHF Chronic AFib on anticoagulation Xarelto Presence of pacemaker Hypotension Plan/recommendation Dr. Gant Follow up with GI in outpatient setting fo EGD and colonoscopy -abdominal pain likely related to severe constipation given no bowel movement in seven days, related to urinary retention given underlying BPH, possible malignancy can not be ruled out as well given significant weight loss. -CT abdomen and pelvis:No acute intraabdominal abnormality. Moderate to severe colonic diverticulosis. -stool occult study pending -underlying poor intake/age-related depression can not be ruled out. -patient can follow up in outpatient setting for routine colonoscopy. -PUD prophylaxis -counseled on appropriate nutrition and protein intake. -no active GI intervention needed at this point. -we will continue following up with the patient. Plan discussed with: Patient, Other My Orders My Orders Orders - CARLA BYERS Procedure Category Date Status Time Obtain Consent For: ORDERS 08/17/24 Verified 15:02 Npo (Nothing By DIET 08/17/24 Verified Mouth) Diet Dinner Obtain Consent For EDWINA 08/17/24 Verified Anesthesia 15:02 Dietary Evaluation Review Recommendations by RD: Protein Supplementation Comments: 1) Add cardiac restriction to current diet order 2) Rigo NOT recommended d/t patient's CKD 3) Initiate Ensure enlive bid d/t poor PO intake 3) Continue to monitor appetite, labs, and skin integrity Expected Outcomes/Goals: 1) appetite and labs to improve 2) wound to improve 3) f/u in 3-5 days CARLA BYERS RESIDENT Aug 17, 2024 15:06
[2024-08-17 16:52] VITALS: BP 144/85; PULSE 82; RESP 18; TEMP 37.2; O2SAT 98
== END 2024-08-17 18:15 | disposition home or self-care (01) | DRG 682 ==
LOC: ER 06:11 → OVERFLOW 13:31 → TELE-EAST 16:46 → TELE-WESTW 22:01
PROVIDERS: ADMIT Hospitalist; ATTEND Hospitalist
DX: N17.0 Acute kidney failure with tubular necrosis (principal); G93.41 Metabolic encephalopathy; D68.69 Other thrombophilia; E87.20 Acidosis, unspecified; R47.01 Aphasia; I13.0 Hypertensive heart and chronic kidney disease with heart failure and stage 1 through stage 4 chronic kidney disease, or unspecified chronic kidney disease; I48.20 Chronic atrial fibrillation, unspecified; G40.209 Localization-related (focal) (partial) symptomatic epilepsy and epileptic syndromes with complex partial seizures, not intractable, without status epilepticus; N40.0 Benign prostatic hyperplasia without lower urinary tract symptoms; G62.9 Polyneuropathy, unspecified; M48.062 Spinal stenosis, lumbar region with neurogenic claudication; I50.9 Heart failure, unspecified; N18.9 Chronic kidney disease, unspecified; G89.29 Other chronic pain; L89.629 Pressure ulcer of left heel, unspecified stage; Z86.73 Personal history of transient ischemic attack (TIA), and cerebral infarction without residual deficits; Z79.899 Other long term (current) drug therapy; Z79.01 Long term (current) use of anticoagulants; Z95.0 Presence of cardiac pacemaker; Z80.6 Family history of leukemia; Z83.3 Family history of diabetes mellitus; Z90.49 Acquired absence of other specified parts of digestive tract
CPT/HCPCS: 36415; 70450; 70545; 70547; 71045; 74176; 80048; 80053; 80162; 80307; 80320; 81001; 82140; 82270; 82306; 82378; 82607; 82746; 82784; 82962; 83605; 84132; 84154; 84439; 84443; 84484; 85025; 85379; 85610; 85730; 86334; 86592; 87040; 87086; 92610; 93005; 95819; 96365; 97110; 97116; 97163; G0378; J2405; J2543; J3490